=== PATIENT | male | born 1950 | race Caucasian/White ===

== ENCOUNTER 2016-07-22 10:24 | Day surgery (SDC) | payer MEDICARE, OTHER ==
[2016-07-20 16:09] VITALS: BMI 19.2
[~2016-07-22 10:24] MED LIST: DEXAMETHASONE SOD PHOSPHATE 10 MG/ML 1 ML VIAL IV ONE; DEXAMETHASONE SOD PHOSPHATE 4 MG/ML 1 ML VIAL IV ONE; FAMOTIDINE 20 MG/2 ML VIAL IV ONE; LACTATED RINGERS 1,000 ML IV SCH; ONDANSETRON 4 MG/2 ML VIAL IVP ONE; ceFAZolin 1,000 MG in DEXTROSE/WATER 1 50ML.BAG IV ONE
[2016-07-22] MEDS: OXYMETAZOLINE 0.05% NASL SPRAY 15 ML NASAL ONE ×5 (11:00→11:25)
[2016-07-22] MEDS ORDERED: LIDOCAINE 1% 20 ML VIAL (10MG/ML) FOR IV START INTRADERMA ONE (11:06)
[2016-07-22] MEDS ORDERED: LIDOCAINE 1% INJ 10MG/ML (20 ML MDV) ONE (12:10)
[2016-07-22] MEDS ORDERED: PROPOFOL 10 MG/ML 20 ML VIAL IV ONE (12:10)
[2016-07-22] MEDS ORDERED: MIDAZOLAM 2 MG/2 ML VIAL ONE (12:10)
[2016-07-22] MEDS ORDERED: DEXAMETHASONE SOD PHOS (MDV) 100 MG/10 ML VIAL ONE (12:10)
[2016-07-22] MEDS ORDERED: SUCCINYLCHOLINE CHLORIDE 100 MG/5 ML SYR IV ONE (12:10)
[2016-07-22] MEDS ORDERED: fentaNYL (PF) 50 MCG/ML 2 ML AMP ONE (12:10)
[2016-07-22] MEDS ORDERED: PHENYLEPHRINE-0.9% NACL SYG 1 MG/10 ML SYRINGE ONE (12:10)
[2016-07-22] MEDS ORDERED: LIDOCAINE 1%-EPI 1:100,000 20 ML VIAL SUBMUCOSAL ONE ×2 (12:28)
[2016-07-22] MEDS ORDERED: BACITRACIN 500 UNIT/GM OINT 28.4 GM TUBE TOPICAL ONE (12:34)
--- NOTE | 2016-07-22 13:42 | P.OP ---
Date of Procedure: 07/22/16 Preoperative Diagnosis: Deviated nasal septum Inferior turbinate hypertrophy Chronic sinusitis Postoperative Diagnosis: Deviated nasal septum Inferior turbinate hypertrophy Chronic sinusitis Procedure(s) Performed: Septoplasty Outfractured and submucous resection inferior turbinates Bilateral endoscopic sinus surgery including bilateral maxillary antrostomy with removal of tissue from the maxillary sinuses bilateral anterior posterior ethmoidectomy, balloon sinus plasty of the bilateral frontal and sphenoid sinuses with exploration Anesthesia: JASON Surgeon: Jus Sandoval Estimated Blood Loss (ml): 50 Pathology: other (Nasal septal bone and cartilage sinus contents) Condition: stable Disposition: PACU Indications for Procedure: This 66-year-old with difficulties with chronic and recurrent sinusitis requiring antibiotics multiple times a year. Computed tomography scan showed evidence of pansinusitis. He also has chronic nasal airway obstruction. Operative Findings: Nasal septum deviated to the left, inferior turbinate hypertrophy, polypoid changes middle turbinates bilaterally chronic and the maxillary ethmoid sphenoid and frontal sinuses. Description of Procedure: The patient was brought in the operative suite and placed in a supine position. The patient underwent induction of general anesthesia with oral endotracheal intubation without difficulty. Patient was prepped and draped in usual aseptic fashion. Orbits were in the operating for monitoring throughout the case computed tomography scan was on the infusion throughout the case for review and monitoring. 1% lidocaine with 1 100,000 epinephrine was infused submucosally both sides nasal septum as well as lateral nasal wall and anterior tips the middle turbinates . While this was taking vasoconstrictive effect the inferior turbinates were infractured with Bolt elevator partial submucous resection inferior turbinates performed with microdebrider 2 mm blade removing a portion of the submucosal soft tissue and inferior turbinate bone and then outfractured with Bolt elevator. A left hemitransfixion incision was made with the mucoperichondrial fossa flap on the left elevated. Bony cartilaginous junction was disarticulated and the mucoperiosteal flap on the right was elevated. Bony nasal septal deformities were removed Quincy forceps and an inferior cartilaginous strip was removed leaving a full 1.5 cm caudal strut. Checking intranasally this corrected the nasoseptal deformities and the hemitransfixion incision was closed running 4-0 chromic suture. Full 0 endoscopic examination was performed bilaterally. Being on the left the middle turbinate was medialized with the Ward elevator. There was a sky bullosa cell which was opened performing sky bullectomy. Maxillary ostium located with a ballpoint probe and an infundibulotomy was performed followed by uncinectomy. The maxillary sinus was explored with 30 endoscope and polyps removed from the sinus with giraffe forceps. Anterior and posterior ethmoidectomy were performed from anterior to posterior to the level of the skull base and the roof the anterior anterior ethmoids air cells cleaned with up -biting Blakesley forceps. Nasal frontal duct was then explored. Balloon sinus plasty was performed of the frontal and sphenoid sinuses with the [employer] light guided system exploring the sinuses with 0 and 30 endoscopes. Attention was then turned to the right where the procedures were followed as they had been on the left including the sky bullectomy maxillary antrostomy anterior posterior ethmoidectomy and balloon sinus plasty of the frontal and sphenoid sinus with exploration. Once this was completed standard nasal pore nasal dressing was placed the middle meatus under direct visualization. Bilateral Hammond airway splints coated bacitracin ointment were placed in nasal cavities. Patient was was allowed to emerge from general anesthesia having tolerated procedure well and was extubated in the operating suite and transferred postoperative recovery area in satisfactory condition.
[2016-07-22] MEDS: HYDROmorphone 1 MG/ML 1 ML SYRINGE IVP PRN ×2 (14:05→14:15)
[2016-07-22 14:16] VITALS: TEMP 97.3
[2016-07-22] MEDS ORDERED: LACTATED RINGERS 1,000 ML IV ONE (14:19)
[2016-07-22 14:22] VITALS: RESP 16
[2016-07-22 15:06] VITALS: BP 109/79; PULSE 80
== END 2016-07-22 16:08 | disposition home or self-care (01) ==
LOC: OR 10:24
PROVIDERS: ATTEND Otolaryngology
DX: J34.2 Deviated nasal septum (principal); J34.3 Hypertrophy of nasal turbinates; J32.4 Chronic pansinusitis; J33.8 Other polyp of sinus; J44.9 Chronic obstructive pulmonary disease, unspecified; J45.909 Unspecified asthma, uncomplicated; I10 Essential (primary) hypertension; J37.0 Chronic laryngitis; I25.10 Atherosclerotic heart disease of native coronary artery without angina pectoris; K21.9 Gastro-esophageal reflux disease without esophagitis; H91.90 Unspecified hearing loss, unspecified ear; E78.00 Pure hypercholesterolemia, unspecified; Z87.891 Personal history of nicotine dependence; Z95.5 Presence of coronary angioplasty implant and graft; Z79.82 Long term (current) use of aspirin; Z79.899 Other long term (current) drug therapy; Z79.2 Long term (current) use of antibiotics; Z79.51 Long term (current) use of inhaled steroids; Z79.52 Long term (current) use of systemic steroids
CPT/HCPCS: 88305; 88300; 30520; 30140; 31255; 31267; C1726; J2250; J1100 ×2; J2405; J2001; J3010; J1170; J0690; J2370; J0330; J2704

== ENCOUNTER 2017-01-02 13:44 | Emergency (ER) | payer MEDICARE, OTHER ==
[2017-01-02] MEDS ORDERED: RX INFO: IV CONTRAST WAS GIVEN 1 EACH MISC MISCELLANE PRN (14:03)
[2017-01-02] MEDS ORDERED: MORPHINE SULFATE 2 MG/ML SYRINGE IVP STA (14:03)
[2017-01-02] MEDS ORDERED: ONDANSETRON 4 MG/2 ML VIAL IVP STA (14:03)
[2017-01-02] MEDS ORDERED: SODIUM CHLORIDE 0.9% 500 ML IV STA (14:03)
[2017-01-02 14:49] LABS: Appearance,Urine Clear (Clear); Bilirubin,Urine Negative (Negative); Glucose,Urine (UA) Negative (Negative); Ketones,Urine 1+ (Negative); Leukocyte Esterase,Urine Small (Negative); Nitrite,Urine Negative (Negative); PH, Urine 6.5 (5.0-8.0); Particle Count 599; Protein,Urine Negative (Negative); RBC,Urine 1 /hpf (0-5); Squamous Epithelial Cell,Urine <1 /hpf (0-4); UA Billing (MACRO vs. MICRO) MICRO; Urobilinogen,Urine <2.0 mg/dL (<2.0); WBC,Urine 2 /hpf (0-5)
[2017-01-02 14:49] LABS: Basophils % (A) 0 %; CHCM 33.6; Eosinophils # (A) 0.5 k/uL (0-0.7); Eosinophils % (A) 9 %; HCT 44.5 % (39.0-53.0); HDW 2.77; HGB 14.7 gm/dL (13.0-17.5); Luc # (Auto) 0.15; Luc % (Auto) 3; Lymphocytes # (A) 1.1 k/uL (1.0-4.8); Lymphocytes % (A) 21 %; MCH 28.6 pg (25.0-35.0); MCV 86.7 fL (80.0-100.0); Mean Platelet Volume 6.6; Monocytes # (A) 0.3 k/uL (0-1.0); Monocytes % (A) 6 %; Neutrophils # (A) 3.2 k/uL (1.3-7.7); Neutrophils % (A) 61 %; RBC 5.13 m/uL (4.30-5.90); RDW 13.3 % (11.5-15.5); WBC 5.3 k/uL (3.8-10.6); WBC (Perox) 5.51
[2017-01-02 15:01] LABS: ALT 34 U/L (21-72); AST 20 U/L (17-59); Alkaline Phosphatase 72 U/L (38-126); Amylase 44 U/L (30-110); Anion Gap 13 mmol/L; Blood Urea Nitrogen 11 mg/dL (9-20); Calcium 9.5 mg/dL (8.4-10.2); Carbon Dioxide 21 mmol/L (22-30); Chloride 107 mmol/L (98-107); Glucose 90 mg/dL (74-99); Non-African American GFR(MDRD) >60 (>60 ml/min/1.73 sqM); Potassium 4.1 mmol/L (3.5-5.1); Sodium 141 mmol/L (137-145); Total Bilirubin 0.6 mg/dL (0.2-1.3); Total Protein 6.5 g/dL (6.3-8.2)
--- NOTE | 2017-01-02 15:12 | ED ---
General Adult HPI - General Chief complaint: Abdominal Pain Stated complaint: Abd Pain Time Seen by Provider: 01/02/17 13:56 Source: patient, RN notes reviewed Mode of arrival: ambulatory Limitations: no limitations - History of Present Illness Initial comments: 66-year-old male with past medical history of COPD, CAD, and inguinal hernia presents with the one-day history of abdominal pain. Pain is mild at this time. Patient points to right lower quadrant. Patient describes the pain is sharp in nature, crampy coming and going. Denies vomiting but states his parents and nausea. Patient had a bowel movement today which was watery diarrhea. He had one episode of diarrhea prior to this. No blood in diarrhea. There is no fever or chills. No chest pain or shortness of breath. - Related Data Home Medications Medication Instructions Recorded Confirmed Albuterol Nebulized [Ventolin 2.5 mg INHALATION Q6H PRN 03/18/16 01/02/17 Nebulized] Aspirin 81 mg PO DAILY 03/18/16 01/02/17 Budesonide/Formoterol Fumarate 2 puff INHALATION RT-BID 03/18/16 01/02/17 [Symbicort 160-4.5 Mcg Inhaler] Omeprazole [PriLOSEC] 20 mg PO AC-BRKFST 03/18/16 01/02/17 Allergies Allergy/AdvReac Type Severity Reaction Status Date / Time No Known Allergies Allergy Verified 01/02/17 16:06 Review of Systems ROS Statement: Those systems with pertinent positive or pertinent negative responses have been documented in the HPI. ROS Other: All systems not noted in ROS Statement are negative. Respiratory: Denies: cough, dyspnea Cardiovascular: Denies: chest pain, palpitations Past Medical History Past Medical History: Asthma, Coronary Artery Disease (CAD), Chest Pain / Angina , COPD, GERD/Reflux, Myocardial Infarction (ID), Osteoarthritis (OA) Additional Past Medical History / Comment(s): recent stress test & echo Last Myocardial Infarction Date:: 2005 History of Any Multi-Drug Resistant Organisms: None Reported Past Surgical History: Heart Catheterization With Stent, Hernia Repair Additional Past Surgical History / Comment(s): Heart catheterization 2-3 weeks ago. BRONCHOSCOPY Past Anesthesia/Blood Transfusion Reactions: No Reported Reaction Date of Last Stent Placement:: 2005 Past Psychological History: No Psychological Hx Reported Smoking Status: Former smoker Past Alcohol Use History: None Reported Past Drug Use History: None Reported - Past Family History Mother Family Medical History: No Reported History General Exam Limitations: no limitations General appearance: alert, in no apparent distress Head exam: Present: atraumatic, normocephalic Eye exam: Present: normal appearance, PERRL ENT exam: Present: normal exam, normal oropharynx, mucous membranes moist Neck exam: Present: normal inspection. Absent: tenderness Respiratory exam: Present: normal lung sounds bilaterally. Absent: respiratory distress Cardiovascular Exam: Present: regular rate. Absent: normal rhythm GI/Abdominal exam: Present: soft, tenderness (Right lower quadrant tenderness to palpation). Absent: distended, guarding, rebound, rigid Extremities exam: Present: normal inspection, normal capillary refill. Absent: pedal edema Back exam: Present: normal inspection Neurological exam: Present: alert, oriented X3. Absent: motor sensory deficit Psychiatric exam: Present: normal affect, normal mood Skin exam: Present: warm, dry. Absent: cyanosis, diaphoretic Course Vital Signs 01/02/17 01/02/17 01/02/17 13:55 14:55 15:49 Temperature 98.8 F 98.2 F 98.5 F Pulse Rate 74 67 63 Respiratory 20 20 21 Rate Blood Pressure 121/73 130/79 147/73 O2 Sat by Pulse 99 97 99 Oximetry EKG Findings - EKG Comments: EKG Findings:: EKG shows normal sinus rhythm, ventricular 64,. Over 150, QRS duration 84, QTC 412, there is no ST segment elevation or depression, there is occasional PVC Medical Decision Making - Medical Decision Making 66-year-old male presenting with right lower quadrant abdominal pain. Pain was sharp and crampy in nature. Patient also reports 2 episodes of watery diarrhea. Some nausea without vomiting. Patient did report a transient episode of chest pain while in the emergency department. EKG was obtained which was nonischemic. Cardiac enzymes also obtained which were negative. Patient states the pain lasted just a minute. After the administration of Zantac nausea medicine. On reevaluation the patient denied any chest pain. There is no radiation of the pain. Laboratories include CBC, CMP, urinalysis. There was no Abnormality seen on the studies. CT was obtained given the right lower quadrant abdominal pain. This was negative for obstruction, negative for appendicitis. No diverticulitis. No acute findings to explain the patient's pain. On reevaluation the patient is feeling better. No episodes nausea vomiting while in the emergency department. Patient's vital signs remained stable. He will be discharged with outpatient follow-up. Diagnosis: Abdominal pain NOS - Lab Data Result diagrams: 01/02/17 14:26 01/02/17 14:26 Lab Results 01/02/17 01/02/17 01/02/17 Range/Units 14:26 14:26 14:26 WBC 5.3 (3.8-10.6) k/uL RBC 5.13 (4.30-5.90) m/uL Hgb 14.7 (13.0-17.5) gm/dL Hct 44.5 (39.0-53.0) % MCV 86.7 (80.0-100.0) fL MCH 28.6 (25.0-35.0) pg MCHC 33.0 (31.0-37.0) g/dL RDW 13.3 (11.5-15.5) % Plt Count 253 (150-450) k/uL Neutrophils % 61 % Lymphocytes % 21 % Monocytes % 6 % Eosinophils % 9 % Basophils % 0 % Neutrophils # 3.2 (1.3-7.7) k/uL Lymphocytes # 1.1 (1.0-4.8) k/uL Monocytes # 0.3 (0-1.0) k/uL Eosinophils # 0.5 (0-0.7) k/uL Basophils # 0.0 (0-0.2) k/uL Sodium 141 (137-145) mmol/L Potassium 4.1 (3.5-5.1) mmol/L Chloride 107 (98-107) mmol/L Carbon Dioxide 21 L (22-30) mmol/L Anion Gap 13 mmol/L BUN 11 (9-20) mg/dL Creatinine 0.90 (0.66-1.25) mg/dL Est GFR (MDRD) Af Amer >60 (>60 ml/min/1.73 sqM) Est GFR (MDRD) Non-Af >60 (>60 ml/min/1.73 sqM) Glucose 90 (74-99) mg/dL Plasma Lactic Acid Jacob 0.9 (0.7-2.0) mmol/L Calcium 9.5 (8.4-10.2) mg/dL Total Bilirubin 0.6 (0.2-1.3) mg/dL AST 20 (17-59) U/L ALT 34 (21-72) U/L Alkaline Phosphatase 72 (38-126) U/L Troponin I (0.000-0.034) ng/mL Total Protein 6.5 (6.3-8.2) g/dL Albumin 3.9 (3.5-5.0) g/dL Amylase 44 (30-110) U/L Lipase 169 (23-300) U/L Urine Color Urine Appearance (Clear) Urine pH (5.0-8.0) Ur Specific Savanna (1.001-1.035) Urine Protein (Negative) Urine Glucose (UA) (Negative) Urine Ketones (Negative) Urine Blood (Negative) Urine Nitrite (Negative) Urine Bilirubin (Negative) Urine Urobilinogen (<2.0) mg/dL Ur Leukocyte Esterase (Negative) Urine RBC (0-5) /hpf Urine WBC (0-5) /hpf Ur Squamous Epith Cells (0-4) /hpf 01/02/17 01/02/17 Range/Units 14:26 14:33 WBC (3.8-10.6) k/uL RBC (4.30-5.90) m/uL Hgb (13.0-17.5) gm/dL Hct (39.0-53.0) % MCV (80.0-100.0) fL MCH (25.0-35.0) pg MCHC (31.0-37.0) g/dL RDW (11.5-15.5) % Plt Count (150-450) k/uL Neutrophils % % Lymphocytes % % Monocytes % % Eosinophils % % Basophils % % Neutrophils # (1.3-7.7) k/uL Lymphocytes # (1.0-4.8) k/uL Monocytes # (0-1.0) k/uL Eosinophils # (0-0.7) k/uL Basophils # (0-0.2) k/uL Sodium (137-145) mmol/L Potassium (3.5-5.1) mmol/L Chloride (98-107) mmol/L Carbon Dioxide (22-30) mmol/L Anion Gap mmol/L BUN (9-20) mg/dL Creatinine (0.66-1.25) mg/dL Est GFR (MDRD) Af Amer (>60 ml/min/1.73 sqM) Est GFR (MDRD) Non-Af (>60 ml/min/1.73 sqM) Glucose (74-99) mg/dL Plasma Lactic Acid Jacob (0.7-2.0) mmol/L Calcium (8.4-10.2) mg/dL Total Bilirubin (0.2-1.3) mg/dL AST (17-59) U/L ALT (21-72) U/L Alkaline Phosphatase (38-126) U/L Troponin I <0.012 (0.000-0.034) ng/mL Total Protein (6.3-8.2) g/dL Albumin (3.5-5.0) g/dL Amylase (30-110) U/L Lipase (23-300) U/L Urine Color Yellow Urine Appearance Clear (Clear) Urine pH 6.5 (5.0-8.0) Ur Specific Sav[place] 1.010 (1.001-1.035) Urine Protein Negative (Negative) Urine Glucose (UA) Negative (Negative) Urine Ketones 1+ H (Negative) Urine Blood Negative (Negative) Urine Nitrite Negative (Negative) Urine Bilirubin Negative (Negative) Urine Urobilinogen <2.0 (<2.0) mg/dL Ur Leukocyte Esterase Small H (Negative) Urine RBC 1 (0-5) /hpf Urine WBC 2 (0-5) /hpf Ur Squamous Epith Cells <1 (0-4) /hpf Disposition Clinical Impression: Abdominal pain Disposition: HOME SELF-CARE Condition: Good Instructions: Abdominal Pain (ED) Referrals: Prashanth Mckeon MD [Primary Care Provider] - 1-2 days Time of Disposition: 16:21
[2017-01-02 15:50] VITALS: BP 147/73; PULSE 63; RESP 21; TEMP 98.5
--- NOTE | 2017-01-02 16:03 | CT ---
EXAMINATION TYPE: CT abdomen pelvis w con DATE OF EXAM: 01/02/2017 COMPARISON: NONE HISTORY: RUQ pain. CT DLP: 330.9 mGycm, Automated Exposure Control for Dose Reduction was Utilized. CONTRAST: CT scan of the abdomen and pelvis is performed without oral but with IV Contrast, patient injected wi th 100 mL of Omnipaque 300. FINDINGS: LUNG BASES: No significant abnormality is appreciated. LIVER/GB: Visualized liver is heterogeneous hypodense suggesting fatty infiltration. This can be conf irmed with follow-up ultrasound if desired. No CT dense intraluminal gallstones or surrounding inflam matory changes seen. PANCREAS: No significant abnormality is seen. SPLEEN: No significant abnormality is seen. ADRENALS: Slight nodular thickening to left adrenal gland is present. KIDNEYS: No significant abnormality is seen. BOWEL: Evaluation bowel is suboptimal secondary to lack of enteric contrast. There is no suspicious s mall or large bowel dilatation seen. Scattered colonic diverticula are seen without convincing CT marino dence for acute diverticulitis. PROSTATE/SEMINAL VESICLES: Heterogeneous enlarged prostate gland bulging on bladder base consistent w ith BPH is present. Central zone calcifications are noted. LYMPH NODES: No greater than 1cm abdominal or pelvic lymph nodes are appreciated. OSSEOUS STRUCTURES: No significant abnormality is seen. OTHER: There is moderate calcified plaque of the abdominal aorta as well as pelvic branch vessels. IMPRESSION: Colonic diverticulosis without convincing CT evidence for acute diverticulitis. No signi ficant acute finding is clearly seen to account for patient's clinical symptoms.
== END 2017-01-02 16:30 | disposition home or self-care (01) ==
LOC: EC 13:44
DX: R10.31 Right lower quadrant pain (principal); R19.7 Diarrhea, unspecified; R11.0 Nausea; J45.909 Unspecified asthma, uncomplicated; M19.90 Unspecified osteoarthritis, unspecified site; J44.9 Chronic obstructive pulmonary disease, unspecified; K21.9 Gastro-esophageal reflux disease without esophagitis; Z98.890 Other specified postprocedural states; Z87.891 Personal history of nicotine dependence; Z79.51 Long term (current) use of inhaled steroids; Z79.82 Long term (current) use of aspirin; Z79.899 Other long term (current) drug therapy
CPT/HCPCS: 36415; 93005; 80053; 82150; 83605; 83690; 84484; 85025; 81001; 74177; 99284; 96374; 96375; 96361; J2405; J2270; Q9967

== ENCOUNTER → 2019-01-09 | Outpatient (CLI) | payer MEDICARE ==
[2019-01-09 12:38] VITALS: BP 120/66; PULSE 68; RESP 16
--- NOTE | 2019-01-10 13:53 | P.PAINCN ---
History of Present Illness - Reason for Consult Consult date: 01/09/19 - History of Present Illness This is a 68-year-old patient who has been referred for chronic pain in the neck, radiating to right shoulder, right arm, forearm and into all 5 fingers. Pain began a few months ago, with no inciting event. He endorses numbness and tingling in his right hand, all 5 fingers. He denies overt weakness. Of note, he follows with an orthopedic surgeon )Dr. Merino in [place]) for right shoulder pain, and has been told he has a rotator cuff tear. Patient has been taking medications including [id number] Tylenol with some relief. He reports that he has occasional spasms in bilateral hands and feet. Patient denies new- onset weakness, bowel/bladder incontinence, or any other signs or symptoms of cauda equina syndrome. Patient notes that there are no aggravating or relieving factors for his pain. Patient HAS NOT had surgery. Patient HAS NOT had injections previously. Patient HAS NOT had physical therapy recently. In addition to above, 13-point review of systems is also negative for chest pain, shortness of breath, changes in vision, changes in hearing, new onset weakness, abdominal pain, diarrhea, extreme fatigue, malaise, fever, skin changes, homicidal or suicidal ideation, or bowel or bladder incontinence. Imaging: MRI cervical spine done at [facility] on 12/20/2018 shows multilevel degenerative changes, most pronounced at C6-C7 where there is a posterior disc osteophyte complex resulting in mild central canal stenosis. There is bilateral uncovertebral joint hypertrophy. The constellation of findings result in severe left and moderate to severe right neuroforaminal narrowing. Past Medical History Past Medical History: Asthma, Coronary Artery Disease (CAD), Chest Pain / Angina, COPD, GERD/Reflux, Myocardial Infarction (NE), Osteoarthritis (OA) Additional Past Medical History / Comment(s): recent stress test & echo Last Myocardial Infarction Date:: 2005 History of Any Multi-Drug Resistant Organisms: None Reported Past Surgical History: Heart Catheterization With Stent, Hernia Repair Additional Past Surgical History / Comment(s): BRONCHOSCOPY Past Anesthesia/Blood Transfusion Reactions: No Reported Reaction Date of Last Stent Placement:: 2005 Smoking Status: Former smoker - Past Family History Mother Family Medical History: No Reported History Medications and Allergies Home Medications Medication Instructions Recorded Confirmed Type Albuterol Nebulized [Ventolin 2.5 mg INHALATION Q6H PRN 03/18/16 01/09/19 History Nebulized] Aspirin 81 mg PO DAILY 03/18/16 01/09/19 History Budesonide/Formoterol Fumarate 2 puff INHALATION RT-BID 03/18/16 01/09/19 History [Symbicort 160-4.5 Mcg Inhaler] Omeprazole [PriLOSEC] 20 mg PO AC-BRKFST 03/18/16 01/09/19 History Allergies Allergy/AdvReac Type Severity Reaction Status Date / Time No Known Allergies Allergy Verified 01/09/19 12:39 Physical Exam Vitals: Blood pressure 120/66 Heart rate 68 bpm Respirations 16 per minute Saturations 98% on room air Physical exam: Vital Signs: Reviewed in EMR GENERAL: Well appearing, in no acute distress PSYCH: Mood and affect is appropriate. Awake, alert, and oriented SKIN: Skin color, texture, turgor normal, no rashes or lesions HEENT: Normocephalic, atraumatic. EOM intact CV: No pedal edema RESP: Respirations are unlabored, no audible wheezing GI: Abdomen non-distended MUSCULOSKELETAL: Bilateral upper extremity strength is normal and symmetric. No atrophy or tone abnormalities are noted. Neck: Tenderness to palpation over the cervical paraspinous muscles bilaterally. Spurling negative, Axial Loading Test negative, Babcock's sign negative. No pain with neck flexion, extension, or lateral flexion. No obvious deformity or signs of trauma. Normal cervical lordotic curve and normal cervical spine range of motion Right shoulder: No tenderness to palpation along anterior and posterior joint line. Positive Neer sign and crossed adduction sign. Gait: Gait is normal NEUR: Bilateral upper extremity coordination and muscle stretch reflexes are physiologic and symmetric. No loss of sensation is noted. Cranial nerves are grossly intact. Assessment and Plan Plan: Assessment: 1. Cervical radiculitis 2. Cervical degenerative disc disease 3. Right shoulder painlikely due to rotator cuff injury Plan: 1. Procedures: Will schedule right paramedian C7-T1 epidural steroid injection under fluoroscopy 2. Investigations: None, MRI C-spine reviewed 3. Medications: No Changes at this time 4. Disposition: For above-mentioned procedure PQRS Measure Charge Sheet PQRS Narrative: Smoking Status Former smoker Blood Pressure 120/66 Pain Intensity [Lower Neck] 10 Scale Used Numeric (1 - 10) Hx Alcohol Use (MH) No Home Medications: Ambulatory Orders Albuterol Nebulized [Ventolin Nebulized] 2.5 mg INHALATION Q6H PRN 03/18/16 Aspirin 81 mg PO DAILY 03/18/16 Budesonide/Formoterol Fumarate [Symbicort 160-4.5 Mcg Inhaler] 2 puff INHALATION RT-BID 03/18/16 Omeprazole [PriLOSEC] 20 mg PO AC-BRKFST 03/18/16
== END | disposition home or self-care (01) ==
LOC: PNWHC3 12:11
PROVIDERS: ATTEND Anesthesiology
DX: G89.29 Other chronic pain (principal); M50.10 Cervical disc disorder with radiculopathy, unspecified cervical region; M25.511 Pain in right shoulder; I25.2 Old myocardial infarction; M19.90 Unspecified osteoarthritis, unspecified site; I25.10 Atherosclerotic heart disease of native coronary artery without angina pectoris; J45.909 Unspecified asthma, uncomplicated; Z87.891 Personal history of nicotine dependence; Z79.82 Long term (current) use of aspirin; Z79.51 Long term (current) use of inhaled steroids; Z79.899 Other long term (current) drug therapy
CPT/HCPCS: 99201

== ENCOUNTER 2019-01-23 09:16 | Day surgery (SDC) | payer MEDICARE ==
[2019-01-17 16:14] VITALS: BMI 19.9
[~2019-01-23 09:16] MED LIST changes: -DEXAMETHASONE SOD PHOSPHATE 10 MG/ML 1 ML VIAL IV ONE; -DEXAMETHASONE SOD PHOSPHATE 4 MG/ML 1 ML VIAL IV ONE; -FAMOTIDINE 20 MG/2 ML VIAL IV ONE; -ONDANSETRON 4 MG/2 ML VIAL IVP ONE; -ceFAZolin 1,000 MG in DEXTROSE/WATER 1 50ML.BAG IV ONE
[2019-01-23 09:47] VITALS: TEMP 97.9
[2019-01-23] MEDS ORDERED: LIDOCAINE 1% 20 ML VIAL (10MG/ML) FOR IV START INTRADERMA ONE (09:50)
[2019-01-23 09:51] LABS: Glucose,Whole Blood 81 mg/dL (75-99)
--- NOTE | 2019-01-23 10:15 | P.PCN ---
Date of Procedure: 01/23/19 Procedure(s) Performed: . PROCEDURE 1. Cervical epidural steroid injection under fluoroscopic guidance, C7-T1 (fluoroscopy images available in the radiology department ) 2. Cervical epidurogram. PREOPERATIVE DIAGNOSIS: 1- Cervical Degenerative Disc Diseases 2- Cervical radiculopathy., POSTOPERATIVE DIAGNOSIS: : 1- Cervical Degenerative Disc Diseases , 2- Cervical radiculopathy. ANESTHESIA: Local anesthesia with lidocaine 1 % , and moderate sedation, with Versed 2 mg and Fentanyl 50 mcg. EBL 0 PROCEDURE INDICATION: The patient with neck pain and radiculitis unresponsive to conservative treatment consents for procedure. PROCEDURE DESCRIPTION / TECHNIQUE: The patient was seen and identified in the preoperative area. Risks, benefits, complications, including but not limited to infections ,bleeding , allergic reactions to the medications ,and not complete pain releife, and alternatives were discussed with the patient, the patient agreed to proceed with the procedure and signed the consent. Patient was taken to the OR and time out was completed. The patient was placed in the prone position on the procedure table. A pillow was placed under the patients chest to increase the cervical interlaminar space. The cervical area was prepped and draped in the usual sterile fashion. Vital signs were closely monitored during the procedure. Conscious sedation was used during the procedure to decrease patients anxiety. Using anterior-posterior fluoroscopy, the C7-T1 interlaminar space was identified and the skin over this site was marked and then infiltrated with 1% lidocaine subcutaneously. Subsequently, a 20-gauge 3-1/2-inch Tuohy epidural needle was inserted and advanced toward the epidural space by means of the ``hanging-drop technique and guided by AP and lateral fluoroscopy. The correct needle position in the epidural space was verified with the injection of 2 mL of the water soluble contrast dye Isovue-200 and observing an excellent epidurogram with the epidural spread of the dye, after negative aspiration for blood and CSF and in the absence of paresthesias. Again after negative aspiration, mixture containing 20 mg Dexamethasone and 2 ml of preservative- free normal saline injected and a washout of epidurogram was seen. Needle was withdrawn intact, skin was cleansed, and bandages were applied. Complications= none. Disposition= patient was placed in supine position and transferred to the recovery room area in stable condition and there was no evidence of upper or lower extremity motor or sensory deficit after the procedure patient was discharged from recovery room after discharge criteria met and home discharge instructions was given by the staff and patient will follow with the pain clinic in 2-4 weeks
[2019-01-23] MEDS ORDERED: IV FLUID CONTINUATION 1,000 ML IV ONE (10:16)
[2019-01-23 10:19] VITALS: RESP 16
--- NOTE | 2019-01-23 10:24 | FL ---
Fluoroscopy INDICATION: Pain FINDINGS: Fluoroscopy time: 2 seconds. Images obtained: 1. IMPRESSIONS: 1. Documentation of fluoroscopy.
[2019-01-23 10:33] VITALS: BP 134/67; PULSE 78
== END 2019-01-23 10:54 | disposition home or self-care (01) ==
LOC: ORPAIN 09:16
PROVIDERS: ATTEND Specialist
DX: M50.10 Cervical disc disorder with radiculopathy, unspecified cervical region (principal)
CPT/HCPCS: 62321; J2250; J1100; J3010; Q9966

== ENCOUNTER → 2019-02-16 | Outpatient (CLI) | payer MEDICARE ==
[2019-02-16 11:54] VITALS: BP 125/72; PULSE 72; RESP 16
--- NOTE | 2019-02-16 12:35 | P.PN ---
Subjective Progress Note Date: 02/16/19 This is a 68-year-old patient who has been referred for chronic pain in the neck, radiating to right shoulder, right arm, forearm and into all 5 fingers. He is here for follow up after his cervical epidural steroid injection, which helped minimally with his pain. His pain score went from an 8/10 60s for 1 day. Because his pain was not better reduced, insurance would not authorize a second cervical injection . In terms of his pain, to briefly review, his pain began a few months ago, with no inciting event. He endorses numbness and tingling in his right hand, all 5 fingers. He denies overt weakness. Of note, he follows with an orthopedic surgeon )Dr. Merino in [place]) for right shoulder pain, and has been told he has a rotator cuff tear. He reports that he has occasional spasms in bilateral hands and feet. Patient denies new-onset weakness, bowel/bladder incontinence, or any other signs or symptoms of cauda equina syndrome. Today he is interested in other interventional options for his pain. Objective - Vital Signs Vital signs: Vital Signs Temp Pulse 72 02/16/19 11:41 Resp 16 02/16/19 11:41 BP 125/72 02/16/19 11:41 Pulse Ox - Exam Vital Signs: Reviewed in EMR GENERAL: Well appearing, in no acute distress, PSYCH: Mood and affect is appropriate. Awake, alert, and oriented SKIN: Skin color, texture, turgor normal, no rashes or lesions HEENT: Normocephalic, atraumatic. EOM intact CV: No pedal edema RESP: Respirations are unlabored, no audible wheezing GI: Abdomen non-distended MUSCULOSKELETAL: Bilateral upper and lower extremity strength is normal and symmetric. No atrophy or tone abnormalities are noted. Neck: He does have some pain to palpation to cervical paraspinals. However in the vast majority of his pain is in the musculature in his right neck near the cervical paraspinals, trapezius, supraspinatus muscle. Extremities: Peripheral joint ROM is full and pain free without obvious instability or laxity in all four extremities. No edema or skin discolorations noted. Gait: Gait is anantalgic NEUR: Bilateral upper and lower extremity coordination and muscle stretch reflexes are physiologic and symmetric. No loss of sensation is noted. Cranial nerves are grossly intact. Assessment and Plan Assessment: Assessment: 1. Myofascial pain 2. Cervical radicular pain 3. Cervical spondylosis Plan: 1. Explanation: I strained him that his pain could be coming from multiple sources. He did not have good response to cervical epidural. His pain may be from the musculature or from the cervical facets. 2. Opioid agreement: None 3. Counseling: The patient was instructed C-reactive 4. Procedures: We will pursue trigger point injections given the myofascial nature of this pain. If this is not help to pursue a cervical medial branch RFA workup. This should be done on the lower cervical levels. 5. Consultations: He was given a prescription for physical therapy for potential myofascial pain and cervical facet arthropathy. 6. Investigations: None 7. Medications: Patient was given a prescription for lidocaine patch. 8. Disposition: For trigger point injections. ,
== END ==
LOC: PNWHC3 11:18
PROVIDERS: ATTEND Student in an Organized Health Care Education/Training Program
DX: M47.22 Other spondylosis with radiculopathy, cervical region (principal); M79.18 Myalgia, other site
CPT/HCPCS: 99211

== ENCOUNTER 2019-03-01 08:57 | Day surgery (SDC) | payer MEDICARE ==
[2019-02-27 11:04] VITALS: BMI 19.2
[2019-03-01] MEDS ORDERED: LIDOCAINE 1% 20 ML VIAL (10MG/ML) FOR IV START INTRADERMA ONE (10:11)
[2019-03-01 10:20] VITALS: TEMP 98
--- NOTE | 2019-03-01 10:56 | P.PCN ---
Date of Procedure: 03/01/19 Procedure(s) Performed: Procedure= trigger point injection on the right side cervical paraspinal muscles, right trapezius, Right supraspinatus. (Total of 6 trigger points injected ) Preop diagnosis=1-myofascial pain syndrome and cervical area. 2-cervical radiculopathy. 3-cervical spondylosis with facet arthropathy. Postoperative diagnoses= same as preoperative diagnoses. Anesthesia=none . Condition= stable. Complications=none. Indication and description of the procedure= this is 68 years old male with history of severe neck pain who failed conservative treatment and he is here to have trigger point injection procedure risks ,and benefits and alternatives discussed with the patient he agreed with the preceding patient taken to the procedure room and placed in the sitting position, each of the trigger point (total of 6 trigger point was identified in the right side trapezius supraspinatus and right cervical paraspinous muscles ) it was marked in the preop holding area, each point injected with mixture of ropivacaine 0.5% and Depo-Medrol ,3 mL injected at each trigger point, after negative aspiration using 25-gauge needle, injection done after negative aspiration under was no paresthesia ,injection done after we prepped the area with a chlorhexidine 3 , total of 18 ML of the mixture of ropivacaine 0.5% was mixed with 40 mg of Depo- Medrol. Patient tolerated the procedure well without any competitions.
[2019-03-01] MEDS ORDERED: IV FLUID CONTINUATION 1,000 ML IV ONE (10:57)
[2019-03-01 11:12] VITALS: BP 147/76; PULSE 65; RESP 16
== END 2019-03-01 11:16 | disposition home or self-care (01) ==
LOC: ORPAIN 08:57
PROVIDERS: ATTEND Specialist
DX: M79.18 Myalgia, other site (principal); M47.22 Other spondylosis with radiculopathy, cervical region
CPT/HCPCS: 20553; J1030

== ENCOUNTER 2020-08-01 07:13 | Inpatient (IN) | payer MEDICARE ==
[2020-08-01] MEDS ORDERED: HYDROmorphone 1 MG/ML 1 ML SYRINGE IVP STA (07:26)
[2020-08-01] MEDS ORDERED: SODIUM CHLORIDE 0.9% 1,000 ML IV STA (07:26)
--- NOTE | 2020-08-01 07:47 | ED ---
Abdominal Pain HPI - General Chief Complaint: Abdominal Pain Stated Complaint: Abd Pain Time Seen by Provider: 08/01/20 07:13 Source: patient, EMS, old records reviewed Mode of arrival: EMS Limitations: no limitations - History of Present Illness Initial Comments: This is a 70-year-old male who was transferred from [facility] where he was diagnosed with acute cholecystitis this morning.) By EMS. He states they have any abdominal pain for the past 2 days he states that in spite of pain medication he still has pain is close to 10/10 severity. He had a workup there which included lab work and a CAT scan lab work showed a elevated white blood cell count CAT scan showed evidence a distended gallbladder with possible stones in the gallbladder neck and prominence of the gallbladder wall. Patient was transferred here for further evaluation and treatment. No current nausea vomiting diarrhea no other complaints at this time MD Complaint: abdominal pain - Related Data Home Medications Medication Instructions Recorded Confirmed Albuterol Nebulized [Ventolin 2.5 mg INHALATION Q6H PRN 03/18/16 03/17/19 Nebulized] Budesonide/Formoterol Fumarate 2 puff INHALATION RT-BID 03/18/16 03/17/19 [Symbicort 160-4.5 Mcg Inhaler] Omeprazole [PriLOSEC] 20 mg PO AC-[id number] 03/18/16 03/17/19 RX: Aspirin 81 mg PO DAILY 03/18/16 03/17/19 Lidocaine 5% Patch [Lidoderm] 1 patch TOPICAL BID 02/16/19 03/17/19 Allergies Allergy/AdvReac Type Severity Reaction Status Date / Time No Known Allergies Allergy Verified 08/01/20 07:29 Review of Systems ROS Statement: Those systems with pertinent positive or pertinent negative responses have been documented in the HPI. ROS Other: All systems not noted in ROS Statement are negative. Past Medical History Past Medical History: Asthma, Coronary Artery Disease (CAD), Chest Pain / Angina, COPD, GERD/Reflux, Hyperlipidemia, Hypertension, Myocardial Infarction ([place]), Osteoarthritis (OA) Additional Past Medical History / Comment(s): recent stress test & echo, increasing neck pain with headaches Last Myocardial Infarction Date:: 2005 History of Any Multi-Drug Resistant Organisms: None Reported Past Surgical History: Heart Catheterization With Stent, Hernia Repair Additional Past Surgical History / Comment(s): BRONCHOSCOPY, PAIN CLINIC PROCEDURES Past Anesthesia/Blood Transfusion Reactions: No Reported Reaction Date of Last Stent Placement:: 2005 Past Psychological History: Anxiety Smoking Status: Former smoker Past Alcohol Use History: None Reported Past Drug Use History: None Reported - Past Family History Mother Family Medical History: No Reported History General Exam - General Exam Comments Initial Comments: This a well-developed asthenic appearing male who is awake alert oriented 3 Limitations: no limitations General appearance: alert, anxious, in distress Head exam: Present: atraumatic, normocephalic, normal inspection Eye exam: Present: normal appearance, PERRL, EOMI. Absent: scleral icterus, conjunctival injection, periorbital swelling ENT exam: Present: normal exam, mucous membranes moist Neck exam: Present: normal inspection. Absent: tenderness, meningismus, lymphadenopathy Respiratory exam: Present: normal lung sounds bilaterally. Absent: respiratory distress, wheezes, rales, rhonchi, stridor Cardiovascular Exam: Present: regular rate, normal rhythm, normal heart sounds. Absent: systolic murmur, diastolic murmur, rubs, gallop, clicks GI/Abdominal exam: Present: soft, tenderness (Right upper quadrant tenderness palpation with some evidence of guarding), guarding, normal bowel sounds. Absent: distended, rebound, rigid Extremities exam: Present: normal inspection, full ROM, normal capillary refill. Absent: tenderness, pedal edema, joint swelling, calf tenderness Back exam: Present: normal inspection Neurological exam: Present: alert, oriented X3, CN II-XII intact Psychiatric exam: Present: normal affect, normal mood Skin exam: Present: warm, dry, intact, normal color. Absent: rash Course Vital Signs 08/01/20 07:15 Temperature 98.2 F Pulse Rate 68 Respiratory 18 Rate Blood Pressure 159/113 O2 Sat by Pulse 96 Oximetry - Reevaluation(s) Reevaluation #1: 08/01/20 07:47 I did review the imaging in the materials presented EKG appears be normal sinus with no acute findings. I did discuss case with Dr. Harp patient will be admitted for further evaluation and treatment. Patient has already received IV antibiotics prior to transfer. Disposition Clinical Impression: Abdominal pain, Acute cholecystitis Disposition: ADMITTED IP TO THIS [facility] Condition: Stable Referrals: Prashanth Mckeon MD [Primary Care Provider] - 1-2 days
[2020-08-01] MEDS ORDERED: HYDROmorphone 1 MG/ML 1 ML SYRINGE IVP PRN (07:48)
[2020-08-01] MEDS ORDERED: NALOXONE 0.4 MG/ML 1 ML VIAL IV PRN (07:48)
[2020-08-01] MEDS ORDERED: ONDANSETRON 4 MG/2 ML VIAL IVP PRN (07:48)
[2020-08-01] MEDS ORDERED: TAMSULOSIN 0.4 MG CAP.ER.24H PO STA (08:12)
[2020-08-01] MEDS ORDERED: INDOCYANINE GREEN 25 MG VIAL IV STA (08:12)
--- NOTE | 2020-08-01 08:15 | P.GSHP ---
History of Present Illness H&P Date: 08/01/20 CHIEF COMPLAINT: Cholecystitis HISTORY OF PRESENT ILLNESS: The patient is a 70-year-old male transferred from outside facility, [facility] after having 2 days of generalized with right upper quadrant abdominal pain. Outside films are consistent with cholecystitis, as a result he was transferred to [facility]. He reports his abdominal pain is generalized mostly focused on the right upper quadrant. He denies any previous abdominal surgeries. He does have pre-existing history of heart disease. No alleviating factors. He presented with elevated white count. Patient is admitted for acute cholecystitis. PAST MEDICAL HISTORY: Please see list and reviewed PAST SURGICAL HISTORY: Please see list and reviewed MEDICATIONS: Please see list and reviewed ALLERGIES: Please see list and reviewed SOCIAL HISTORY: Please see list and reviewed FAMILY HISTORY: Please see list and reviewed REVIEW OF ORGAN SYSTEMS: CONSTITUTIONAL: No reports of fevers or chills. HEENT: Denies any troubles with the vision or hearing. ENDOCRINE: No reports of hypothyroidism. No diabetes. RESPIRATORY: Has moderate chronic obstructive pulmonary disease CARDIOVASCULAR: History of ischemic cardiomyopathy including previous cardiac catheterization with stent placement. History of echo performed. History of congestive heart failure GASTROINTESTINAL: Presents with cholecystitis. No current blood in stools. Has gastroesophageal reflux disease. MUSCULOSKELETAL: Has occasional joint pain including back pain. NEURO: No seizure disorders or headaches. No recent stroke. PSYCH: No suicidal ideation. Has anxiety disorder. HEMATOLOGIC: No personal or family history of DVTs or pulmonary emboli. SKIN: No rash. No skin cancer. 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 HEENT: No scleral icterus. Extraocular movements grossly intact. Moist buccal mucosa. NECK: Supple without lymphadenopathy. CHEST: Unlabored respirations. Equal bilateral excursions. CARDIOVASCULAR: Regular rate regular rhythm rhythm. Distal 2+ pulses. ABDOMEN: Soft, nondistended. Tender along the epigastrium and right upper quadrant. MUSCULOSKELETAL: No clubbing, cyanosis, or edema. NEURO : No focal or lateralizing signs. Cranial nerves II-12 within normal limits. PSYCH: Alert and oriented to person, place and time. SKIN: Well perfused. Good skin turgor. LABS: Reviewed. White count 12,000. LFTs within normal limits. PT/INR within normal limits. EKG: Demonstrates abnormalities including previous infarct ASSESSMENT: 1. Acute cholecystitis 2. Pre-existing ischemic cardiomyopathy with congestive heart failure PLAN: 1. Robotic cholecystectomy described possible open. Benefits and risks were described. 2. Heparin for DVT prophylaxis 5000 units. 3. Antibiotic prophylaxis. 4. Patient is elevated risk for complications due to pre-existing ischemic cardiomyopathy including severity of chronic obstructive pulmonary disease. Past Medical History Past Medical History: Asthma, Coronary Artery Disease (CAD), Chest Pain / Angina, COPD, GERD/Reflux, Hyperlipidemia, Hypertension, Myocardial Infarction ([place]), Osteoarthritis (OA) Additional Past Medical History / Comment(s): recent stress test & echo, increasing neck pain with headaches Last Myocardial Infarction Date:: 2005 History of Any Multi-Drug Resistant Organisms: None Reported Past Surgical History: Heart Catheterization With Stent, Hernia Repair Additional Past Surgical History / Comment(s): BRONCHOSCOPY, PAIN CLINIC PROCEDURES Past Anesthesia/Blood Transfusion Reactions: No Reported Reaction Date of Last Stent Placement:: 2005 Past Psychological History: Anxiety Smoking Status: Former smoker Past Alcohol Use History: None Reported Past Drug Use History: None Reported - Past Family History Mother Family Medical History: No Reported History Medications and Allergies Home Medications Medication Instructions Recorded Confirmed Type Budesonide/Formoterol Fumarate 2 puff INHALATION RT-BID 03/18/16 08/01/20 History [Symbicort 160-4.5 Mcg Inhaler] Atorvastatin [Lipitor] 40 mg PO HS 08/01/20 08/01/20 History Diazepam [Valium] 5 mg PO HS PRN 08/01/20 08/01/20 History Esomeprazole Magnesium [NexIUM] 40 mg PO DAILY 08/01/20 08/01/20 History Famotidine 20 mg PO BID 08/01/20 08/01/20 History Isosorbide Mononitrate ER [Imdur] 30 mg PO DAILY 08/01/20 08/01/20 History Naproxen [Naprosyn] 500 mg PO BID PRN 08/01/20 08/01/20 History Nitroglycerin Sl Tabs [Nitrostat] 0.4 mg SUBLINGUAL Q5M PRN 08/01/20 08/01/20 History Ranolazine [Ranolazine ER] 500 mg PO BID 08/01/20 08/01/20 History Tamsulosin [Flomax] 0.4 mg PO DAILY 08/01/20 08/01/20 History Allergies Allergy/AdvReac Type Severity Reaction Status Date / Time No Known Allergies Allergy Verified 08/01/20 10:04 Surgical - Exam Vital Signs Temp Pulse Resp BP Pulse Ox 98.2 F 68 18 159/113 96 08/01/20 07:15 08/01/20 07:15 08/01/20 07:15 08/01/20 07:15 08/01/20 07:15 Results - Labs 08/01/20 09:40 08/01/20 09:40 Assessment and Plan (1) Acute cholecystitis Current Visit: Yes Status: Acute Code(s): K81.0 - ACUTE CHOLECYSTITIS SNOMED Code(s): 07715085
[2020-08-01] MEDS ORDERED: HEPARIN SODIUM,PORCINE 5,000 UNIT/ML 1 ML VIAL SQ SCH (09:00)
[2020-08-01 09:59] LABS: Basophils # (A) 0.1 k/uL (0-0.2); Basophils % (A) 0 %; Eosinophils # (A) 0.3 k/uL (0-0.7); Eosinophils % (A) 2 %; HCT 45.7 % (39.0-53.0); Lymphocytes % (A) 8 %; MCH 29.2 pg (25.0-35.0); MCHC 32.9 g/dL (31.0-37.0); MCV 88.8 fL (80.0-100.0); Mean Platelet Volume 6.6; Monocytes # (A) 0.7 k/uL (0-1.0); Monocytes % (A) 5 %; Neutrophils % (A) 83 %; Platelet Count 237 k/uL (150-450); RBC 5.14 m/uL (4.30-5.90); RDW 13.2 % (11.5-15.5); WBC 12.1 k/uL (3.8-10.6)
[2020-08-01 10:09] LABS: ALT 22 U/L (4-49); AST 35 U/L (17-59); African American GFR (CKD) >90 (>60 ml/min/1.73 sqM); Albumin 3.9 g/dL (3.5-5.0); Alkaline Phosphatase 65 U/L (38-126); Anion Gap 8 mmol/L; Blood Urea Nitrogen 9 mg/dL (9-20); Carbon Dioxide 24 mmol/L (22-30); Chloride 104 mmol/L (98-107); Glucose 114 mg/dL (74-99); Non-African American GFR(CKD) >90 (>60 ml/min/1.73 sqM); Potassium 4.6 mmol/L (3.5-5.1); Prothrombin Time 10.3 sec (9.0-12.0); Sodium 136 mmol/L (137-145); Total Bilirubin 0.7 mg/dL (0.2-1.3); Total Protein 6.7 g/dL (6.3-8.2)
[2020-08-01] MEDS ORDERED: DEXAMETHASONE SOD PHOSPHATE 4 MG/ML 1 ML VIAL IV ONE (10:27)
[2020-08-01] MEDS ORDERED: IV FLUID CONTINUATION 900 ML IV ONE (10:29)
[2020-08-01] MEDS ORDERED: MIDAZOLAM 2 MG/2 ML VIAL ONE (10:31)
[2020-08-01] MEDS ORDERED: LIDOCAINE 1% INJ 10MG/ML (20 ML MDV) ONE (10:31)
[2020-08-01] MEDS ORDERED: PROPOFOL 10 MG/ML 20 ML VIAL IV ONE (10:31)
[2020-08-01] MEDS ORDERED: fentaNYL (PF) 50 MCG/ML 2 ML AMP ONE (10:31)
[2020-08-01] MEDS ORDERED: SUCCINYLCHOLINE CHLORIDE 100 MG/5 ML SYR IV ONE (10:31)
[2020-08-01] MEDS ORDERED: GLYCOPYRROLATE 0.2 MG/ML 2 ML VIAL ONE (10:31)
[2020-08-01] MEDS ORDERED: ROCURONIUM 10 MG/ML (5 ML VIAL) IV ONE (10:31)
[2020-08-01] MEDS ORDERED: NEOSTIGMINE 1 MG/ML 10 ML VIAL ONE (10:31)
[2020-08-01] MEDS ORDERED: BUPIVACAINE-EPI 0.5%-1:200,000 10 ML VIAL SQ ONE (10:59)
[2020-08-01] MEDS ORDERED: LACTATED RINGERS 1,000 ML IV ONE (12:05)
[2020-08-01 12:45] VITALS: RESP 16
[2020-08-01] MEDS ORDERED: NITROGLYCERIN SL TABS 0.4 MG TAB SUBLINGUAL PRN (13:04)
[2020-08-01] MEDS ORDERED: diazePAM 5 MG TAB PO PRN (13:04)
[2020-08-01] MEDS ORDERED: METOCLOPRAMIDE 5 MG/ML 2 ML VIAL IVP PRN (13:06)
--- NOTE | 2020-08-01 13:18 | P.OP ---
Date of Procedure: 08/01/20 Description of Procedure: SURGEON: ONESIMO CASSIDY MD PREOPERATIVE DIAGNOSES: 1. Acute cholecystitis 2. Chronic obstructive pulmonary disease 3. Ischemic cardiomyopathy 4. Hypertensive heart disease with congestive heart failure 5. Generalized anxiety disorder 6. 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 Leukocytosis 8. Gastroesophageal reflux disease 9. Coronary artery disease with prior stent placement 10. History of myocardial infarction POSTOPERATIVE DIAGNOSES: 1. Acute cholecystitis with hydrops due to cystic duct obstruction from gallstones 2. Chronic obstructive pulmonary disease 3. Ischemic cardiomyopathy 4. Hypertensive heart disease with congestive heart failure 5. Generalized anxiety disorder 6. 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 Leukocytosis 8. Gastroesophageal reflux disease 9. Coronary artery disease with prior stent placement 10. History of myocardial infarction OPERATION: Robotic-assisted da Henrietta Xi laparoscopic cholecystectomy, multiport with FIREFLY ESTIMATED BLOOD LOSS: 10 mL. SPECIMENS REMOVED: Gallbladder. COMPLICATIONS: None. OPERATIVE FINDINGS: 1. Moderately distended gallbladder with thickened gallbladder wall and edema 2. Clear bile consistent with hydrops cholecystitis 3. Features of right inguinal hernia surgery via pre-peritoneal technique INDICATIONS: The patient is a 70-year-old male presented emergently as a transfer from [facility] with acute cholecystitis. Robotic assisted laparoscopic approach was described. Benefits and risks of the procedure including but not limited to bleeding, infection, injury to the biliary tree was described. Informed consent was obtained. DESCRIPTION OF PROCEDURE: Patient was brought to the operating room, placed in supine position. After general induction, the abdomen had been prepped and draped in standard sterile fashion. The robotic da Henrietta XI system was primed. After a timeout protocol was performed, the patient had been prepped and draped in standard sterile fashion. The patient was injected with indocyanine green. A 5 mm 0 degrees laparoscopic trocar entry was performed along the left upper quadrant. The abdomen insufflated to 15 mmHg pressure which was tolerated well. Diagnostic laparoscopy demonstrated no injury to bowel viscera or mesentery. The liver surface was unremarkable. Next, two 8 mm robotic ports were placed along the right upper abdomen. The camera 8-mm port was maintained along the epigastrium. Another 8 mm port was placed along the left upper abdominal wall after exchanging the 5 mm port. Please note that the ports were placed at least 10 to 15 cm away from the target anatomy of the gallbladder. The robot was docked along the left lateral abdomen. The patient was repositioned in reverse Trendelenburg position at 21 with right-sided of 7. Using a grasper for arm 3, a grasper for arm 4, including hook cautery for arm 1, the robotic system was docked and primed as described. Instruments were interchanged by the front office medical assistant including hook cautery, Bovie cautery and clip appliers. I had sat at the console. Initial attention was brought to the infundibulum and cystic structures. However, due to moderate edema and distention of the gallbladder, dome down te chnique was performed. Carefully, the gallbladder dissected from the hepatic fossa using hook cautery including vessel sealer at the infundibulum. FIREFLY was used to identify the cystic artery and cystic structures. A critical view of safety was obtained. Large PLASTIC clips were used throughout the entire case. Using a clip air conditioning unit assembler, 2 clips were placed at the junction of the infundibulum and cystic duct. The cystic duct was divided between clips. Next, the cystic artery was similarly clipped and cauterized. Electro-Bovie cautery was used to remove the gallbladder from the hepatic fossa. Hemostasis was checked and found to be adequate. No contamination occurred during the case. The robot was undocked. I re-scrubbed into the case. Initially 10 mm bag was used. The gallbladder was too large. Using a 15 mm Endo Catch bag via the left upper quadrant incision, the specimen was removed from the abdominal cavity. The left upper quadrant incision and fascia were oversewn using 0 Vicryl and Stoney Song. All pneumoperitoneum instruments were evacuated from the abdominal cavity. The incisions were reapproximated using 4-0 Monocryl in an interrupted subcuticular fashion. Fascial defects were less than 8 mm in size. Please note along the trocar sites, local anesthetic was placed as a field block prior to insertion of all instruments. Liquid glue was applied to the skin. At the end of the procedure needle, sponge, and instrument count had been verified correct by the surgical endoscopist. The patient was transferred to postanesthesia care unit in stable condition. Intraoperative films were shared with the patient's family.
[2020-08-01] MEDS ORDERED: ACETAMINOPHEN IV (For NPO) 1,000 MG in EMPTY BAG 1 BAG IVPB ONE (13:30)
[2020-08-01 13:43] VITALS: TEMP 98.2
[2020-08-01 16:24] VITALS: BP 126/72; PULSE 74
--- NOTE | 2020-08-01 16:51 | P.CONS ---
History of Present Illness - Reason for Consult Consult date: 08/01/20 Medical management - Chief Complaint Abdominal pain - History of Present Illness 70-year-old male patient with history of CAD, hypertension, hyperlipidemia and asthma, who was transferred from [facility] where he was diagnosed with acute cholecystitis this morning.) By EMS. He states they have any abdominal pain for the past 2 days he states that in spite of pain medication he still has pain is close to 10/10 severity. He had a workup there which included lab work and a CAT scan lab work showed a elevated white blood cell count CAT scan showed evidence a distended gallbladder with possible stones in the gallbladder neck and prominence of the gallbladder wall. Patient was transferred here for further evaluation and treatment. Patient was seen by surgery and underwent robotic-assisted laparoscopic cholecystectomy; medical service is consulted postoperatively for medical manag ement Review of Systems REVIEW OF SYSTEMS: CONSTITUTIONAL: No fever, no malaise, no fatigue. HEENT: No recent visual problems or hearing problems. Denied any sore throat. CARDIOVASCULAR: No chest pain, orthopnea, PND, no palpitations, no syncope. PULMONARY: No shortness of breath, no cough, no hemoptysis. GASTROINTESTINAL: No diarrhea, no nausea, no vomiting, no abdominal pain. NEUROLOGICAL: No headaches, no weakness, no numbness. HEMATOLOGICAL: Denies any bleeding or petechiae. GENITOURINARY: Denies any burning micturition, frequency, or urgency. MUSCULOSKELETAL/RHEUMATOLOGICAL: Denies any joint pain, swelling, or any muscle pain. ENDOCRINE: Denies any polyuria or polydipsia. The rest of the 14-point review of systems is negative. Past Medical History Past Medical History: Asthma, Coronary Artery Disease (CAD), Chest Pain / Angina, COPD, GERD/Reflux, Hyperlipidemia, Hypertension, Myocardial Infarction (MD), Osteoarthritis (OA) Additional Past Medical History / Comment(s): recent stress test & echo, increasing neck pain with headaches Last Myocardial Infarction Date:: 2005 History of Any Multi-Drug Resistant Organisms: None Reported Past Surgical History: Heart Catheterization With Stent, Hernia Repair Additional Past Surgical History / Comment(s): BRONCHOSCOPY, PAIN CLINIC PROCEDURES Past Anesthesia/Blood Transfusion Reactions: No Reported Reaction Date of Last Stent Placement:: 2005 Past Psychological History: Anxiety Smoking Status: Former smoker Past Alcohol Use History: None Reported Past Drug Use History: None Reported - Past Family History Mother Family Medical History: No Reported History Medications and Allergies Home Medications Medication Instructions Recorded Confirmed Type Budesonide/Formoterol Fumarate 2 puff INHALATION RT-BID 03/18/16 08/01/20 History [Symbicort 160-4.5 Mcg Inhaler] Acetaminophen Tab [Tylenol Tab] 1,000 mg PO Q6HR PRN #30 tablet 08/01/20 Rx Atorvastatin [Lipitor] 40 mg PO HS 08/01/20 08/01/20 History Diazepam [Valium] 5 mg PO HS PRN 08/01/20 08/01/20 History Esomeprazole Magnesium [NexIUM] 40 mg PO DAILY 08/01/20 08/01/20 History Famotidine 20 mg PO BID 08/01/20 08/01/20 History Isosorbide Mononitrate ER [Imdur] 30 mg PO DAILY 08/01/20 08/01/20 History Naproxen [Naprosyn] 500 mg PO BID PRN 08/01/20 08/01/20 History Nitroglycerin Sl Tabs [Nitrostat] 0.4 mg SUBLINGUAL Q5M PRN 08/01/20 08/01/20 History Ranolazine [Ranolazine ER] 500 mg PO BID 08/01/20 08/01/20 History Simethicone [Gas-X] 125 mg PO AC-TID PRN #20 capsule 08/01/20 Rx Tamsulosin [Flomax] 0.4 mg PO DAILY 08/01/20 08/01/20 History Allergies Allergy/AdvReac Type Severity Reaction Status Date / Time No Known Allergies Allergy Verified 08/01/20 10:04 Physical Exam Vitals: Vital Signs Temp Pulse Pulse Pulse Resp BP BP 08/01/20 16:20 74 16 08/01/20 15:15 79 16 08/01/20 14:45 68 16 08/01/20 14:15 77 16 08/01/20 14:00 76 16 08/01/20 13:45 70 16 08/01/20 13:30 98.2 F 80 16 08/01/20 13:13 77 16 08/01/20 12:58 68 16 08/01/20 12:43 78 16 08/01/20 12:28 97.9 F 81 10 L 08/01/20 10:03 98.4 F 66 16 152/75 08/01/20 08:59 98.4 F 68 17 163/78 08/01/20 08:42 98 F 80 18 158/86 08/01/20 07:15 98.2 F 68 18 159/113 BP Pulse Ox 08/01/20 16:20 126/72 94 L 08/01/20 15:15 106/70 95 08/01/20 14:45 130/77 96 08/01/20 14:15 129/59 96 08/01/20 14:00 93/56 96 08/01/20 13:45 106/56 96 08/01/20 13:30 133/76 96 08/01/20 13:13 140/76 99 08/01/20 12:58 148/68 98 08/01/20 12:43 139/67 96 08/01/20 12:28 141/69 99 08/01/20 10:03 92 L 08/01/20 08:59 95 08/01/20 08:42 100 08/01/20 07:15 96 Intake and Output 08/01/20 08/01/20 08/01/20 06:59 14:59 22:59 Intake Total 2030 Output Total 10 Balance 2020 Intake: IV 1150 Intake, IV Titration 400 Amount ACETAMINOPHEN IV (For NPO 400 ) 1,000 mg In Empty Bag 1 bag @ 400 mls/hr IVPB ONCE ONE Rx#:[id number] Oral 480 Output: Estimated Blood Loss 10 Other: Weight 61.235 kg - Constitutional General appearance: Present: average body habitus, cooperative, no acute distress - EENT Eyes: Present: anicteric sclerae, EOMI, PERRLA, normal appearance ENT: Present: hearing grossly normal, normal oropharynx Ears: bilateral: normal - Neck Neck: Present: normal ROM. Absent: lymphadenopathy, rigidity, thyromegaly Carotids: negative: bruit present Thyroid: bilateral: normal size, negative: enlarged, nodule - Respiratory Respiratory: bilateral: CTA, negative: rales, rhonchi, wheezing - Cardiovascular Rhythm: regular Heart sounds: normal: S1, S2 Abnormal Heart Sounds: Absent: systolic murmur, diastolic murmur - Gastrointestinal General gastrointestinal: Present: normal bowel sounds, soft. Absent: distended, organomegaly, tenderness - Genitourinary Genitourinary Comment(s): deferred - Integumentary Integumentary: Present: normal turgor. Absent: jaundiced, rash, ulcer - Neurologic Neurologic: Present: CNII-XII intact. Absent: focal deficits - Musculoskeletal Musculoskeletal: Present: gait normal, strength equal bilaterally - Psychiatric Psychiatric: Present: A&O x's 3, appropriate affect, intact judgment & insight Results CBC & Chem 7: 08/01/20 09:40 08/01/20 09:40 Labs: Abnormal Lab Results - Last 24 Hours (Table) 08/01/20 08/01/20 Range/Units 09:40 09:40 WBC 12.1 H (3.8-10.6) k/uL Neutrophils # 10.0 H (1.3-7.7) k/uL Sodium 136 L (137-145) mmol/L Glucose 114 H (74-99) mg/dL Assessment and Plan Assessment: 1. Acute cholecystitis; status post robotic-assisted laparoscopic cholecystectomy - Your management 2. Hypertension; Imdur 30 mg daily 3. CAD/CHF; status post stent placement; continue with Imdur, Ranexa 500 mg twice a day 4. COPD/asthma; not in exacerbation; continue with home inhaler therapy with Symbicort 2 puffs twice a day; DuoNeb nebulizer treatments 4 times a day when necessary 5. Hyperlipidemia; Lipitor 40 mg by mouth daily at bedtime DVT prophylaxis; per surgery discretion CODE STATUS; full code
[2020-08-01] MEDS ORDERED: PIPERACILLIN-TAZOBACTAM 3.375 GM in SODIUM CHLORIDE 0.9% 100 ML IVPB STA (17:50)
[2020-08-01] MEDS ORDERED: KETOROLAC 15 MG/ML 1 ML VIAL IVP SCH (18:00)
[2020-08-01] MEDS ORDERED: ACETAMINOPHEN TAB 500 MG TAB PO SCH (18:00)
[2020-08-01] MEDS ORDERED: SYMBICORT 160-4.5 MCG INHALER INHALATION SCH (20:00)
[2020-08-01] MEDS ORDERED: RANOLAZINE 500 MG TAB.ER.12H PO SCH (21:00)
[2020-08-01] MEDS ORDERED: FAMOTIDINE 20 MG TAB PO SCH (21:00)
[2020-08-01] MEDS ORDERED: ATORVASTATIN 40 MG TAB PO SCH (21:00)
[2020-08-02] MEDS ORDERED: PIPERACILLIN-TAZOBACTAM 3.375 GM in SODIUM CHLORIDE 0.9% 100 ML IVPB SCH ×2
[2020-08-02] MEDS ORDERED: PANTOPRAZOLE 40 MG TABLET PO SCH (07:30)
[2020-08-02] MEDS ORDERED: TAMSULOSIN 0.4 MG CAP.ER.24H PO SCH (09:00)
[2020-08-02] MEDS ORDERED: ISOSORBIDE MONONITRATE ER 30 MG TAB.ER.24H PO SCH (09:00)
--- NOTE | 2020-08-02 15:18 | P.DS ---
Providers Date of admission: 08/01/20 08:03 Expected date of discharge: 08/01/20 Attending physician: Shasha Dutton Consults: 08/01/20 13:08 Consult Physician Routine Consulting Provider: Lavelle Bloom Consult Reason/Comments: Medical management Do you want consulting provider notified?: Yes Primary care physician: Prashanth Mckeon - Discharge Diagnosis(es) (1) Acute cholecystitis Status: Acute Hospital Course: POSTOPERATIVE DIAGNOSES: 1. Acute cholecystitis with hydrops due to cystic duct obstruction from gallstones 2. Chronic obstructive pulmonary disease 3. Ischemic cardiomyopathy 4. Hypertensive heart disease with congestive heart failure 5. Generalized anxiety disorder 6. 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 Leukocytosis 8. Gastroesophageal reflux disease 9. Coronary artery disease with prior stent placement 10. History of myocardial infarction COURSE: The patient is a 70-year-old male transferred from outside facility, [facility] after having 2 days of generalized with right upper quadrant abdominal pain. Outside films are consistent with cholecystitis, as a result he was transferred to [facility]. He reports his abdominal pain is generalized mostly focused on the right upper quadrant. He denies any previous abdominal surgeries. He does have pre-existing history of heart disease. No alleviating factors. He presented with elevated white count. Patient was admitted for acute cholecystitis. He underwent robotic cholecystectomy without sequela. Postoperatively, he was voiding, pain was well-controlled, he was tolerating diet. Discharge instructions were reviewed. Patient was stable for discharge. Procedures: OPERATION: Robotic-assisted da Henrietta Xi laparoscopic cholecystectomy, multiport with FIREFLY ESTIMATED BLOOD LOSS: 10 mL. SPECIMENS REMOVED: Gallbladder. COMPLICATIONS: None. OPERATIVE FINDINGS: 1. Moderately distended gallbladder with thickened gallbladder wall and edema 2. Clear bile consistent with hydrops cholecystitis 3. Features of right inguinal hernia surgery via pre-peritoneal technique Patient Condition at Discharge: Stable Plan - Discharge Summary Discharge Rx Participant: No New Discharge Prescriptions: New Simethicone [Gas-X] 125 mg PO AC-TID PRN #20 capsule PRN Reason: Abdominal Distention Acetaminophen Tab [Tylenol Tab] 1,000 mg PO Q6HR PRN #30 tablet PRN Reason: Pain Continue Budesonide/Formoterol Fumarate [Symbicort 160-4.5 Mcg Inhaler] 2 puff INHALATION RT-BID Tamsulosin [Flomax] 0.4 mg PO DAILY Ranolazine [Ranolazine ER] 500 mg PO BID Nitroglycerin Sl Tabs [Nitrostat] 0.4 mg SUBLINGUAL Q5M PRN PRN Reason: Chest Pain Naproxen [Naprosyn] 500 mg PO BID PRN PRN Reason: Pain Isosorbide Mononitrate ER [Imdur] 30 mg PO DAILY Famotidine 20 mg PO BID Esomeprazole Magnesium [NexIUM] 40 mg PO DAILY Diazepam [Valium] 5 mg PO HS PRN PRN Reason: Insomnia Atorvastatin [Lipitor] 40 mg PO HS Discharge Medication List Budesonide/Formoterol Fumarate [Symbicort 160-4.5 Mcg Inhaler] 2 puff INHALATION RT-BID 03/18/16 [History] Acetaminophen Tab [Tylenol Tab] 1,000 mg PO Q6HR PRN #30 tablet 08/01/20 [Rx] Atorvastatin [Lipitor] 40 mg PO HS 08/01/20 [History] Diazepam [Valium] 5 mg PO HS PRN 08/01/20 [History] Esomeprazole Magnesium [NexIUM] 40 mg PO DAILY 08/01/20 [History] Famotidine 20 mg PO BID 08/01/20 [History] Isosorbide Mononitrate ER [Imdur] 30 mg PO DAILY 08/01/20 [History] Naproxen [Naprosyn] 500 mg PO BID PRN 08/01/20 [History] Nitroglycerin Sl Tabs [Nitrostat] 0.4 mg SUBLINGUAL Q5M PRN 08/01/20 [History] Ranolazine [Ranolazine ER] 500 mg PO BID 08/01/20 [History] Simethicone [Gas-X] 125 mg PO AC-TID PRN #20 capsule 08/01/20 [Rx] Tamsulosin [Flomax] 0.4 mg PO DAILY 08/01/20 [History] Follow up Appointment(s)/Referral(s): Shasha Dutton MD [STAFF PHYSICIAN] - 08/06/20 Prashanth Mckeon MD [Primary Care Provider] - 1-2 days Patient Instructions/Handouts: Laparoscopic Cholecystectomy (DC) Activity/Diet/Wound Care/Special Instructions: Recommend low-fat diet for the next 2 days. No lifting over 10 pounds in 2 weeks until August 15. September shower. No bath tub soaks for two weeks until August 15. Diet as tolerated. Use Tylenol and ibuprofen or Aleve scheduled for the next 24-48 hours for best pain relief. Use ice along incisions for today to prevent swelling. Discharge Disposition: HOME SELF-CARE
== END 2020-08-01 19:20 | disposition home or self-care (01) | DRG 418 ==
LOC: EC 07:13 → 6NMEDSUR 08:03 → OBSVTOIN 13:06 → UNDODISOB 19:20
PROVIDERS: ADMIT Surgery Plastic and Reconstructive Surgery; ATTEND Surgery Plastic and Reconstructive Surgery
PROC: BF50200 Other Imaging of Bile Ducts using Fluorescing Agent, Indocyanine Green Dye, Intraoperative (ICD-10-PCS; 2020-08-01)
PROC: 8E0W4CZ Robotic Assisted Procedure of Trunk Region, Percutaneous Endoscopic Approach (ICD-10-PCS; 2020-08-01)
PROC: 0FT44ZZ Resection of Gallbladder, Percutaneous Endoscopic Approach (ICD-10-PCS; principal; 2020-08-01 10:30)
DX: K80.01 Calculus of gallbladder with acute cholecystitis with obstruction (principal); K82.1 Hydrops of gallbladder; J44.9 Chronic obstructive pulmonary disease, unspecified; I25.5 Ischemic cardiomyopathy; I11.0 Hypertensive heart disease with heart failure; I50.9 Heart failure, unspecified; F41.1 Generalized anxiety disorder; K21.9 Gastro-esophageal reflux disease without esophagitis; I25.10 Atherosclerotic heart disease of native coronary artery without angina pectoris; I25.2 Old myocardial infarction; N13.9 Obstructive and reflux uropathy, unspecified; N42.9 Disorder of prostate, unspecified; Z79.82 Long term (current) use of aspirin; E78.5 Hyperlipidemia, unspecified; D72.829 Elevated white blood cell count, unspecified; Z79.51 Long term (current) use of inhaled steroids; Z95.5 Presence of coronary angioplasty implant and graft; Z87.891 Personal history of nicotine dependence; Z20.822 Contact with and (suspected) exposure to COVID-19
CPT/HCPCS: 80053; 85025; 85610; 87635; 88304; 96361; 96374; 96375; 99285

== ENCOUNTER → 2022-09-17 | Outpatient (CLI) | payer MEDICARE ==
--- NOTE | 2022-09-17 22:39 | MR ---
MRI CERVICAL SPINE: CLINICAL HISTORY: No prior, neck pain with headaches with BUE weakness and pain for 3 months , no nela scarlett. spondylosis with radiculopathy per order TECHNIQUE: Multiplanar, multisequence imaging of the cervical spine is performed without IV contrast. COMPARISON: Outside cervical spine x-ray September 02, 2022 FINDINGS: Sagittal images of the cervical spine show the craniocervical junction to appear within nor mal limits. The cervical and upper thoracic spinal cord is normal in course, caliber, and signal. Sl ight grade 1 retrolisthesis C3 on C4 and C4 on C5 is redemonstrated. The vertebral body heights are normal. Persistent mild to moderate disc space narrowing C3-C4, C4-C5, and C6-C7 levels The bone mar row signal intensity is within normal limits. At least moderate mucosal thickening in the bilateral m axillary and sphenoid sinuses is felt present. Axial images show C2-C3 level to appear within normal limits. Axial images at C3-C4 level shows spondylosis with broad-based posterior disc protrusion mildly effac ing the anterior thecal sac and causing moderate left greater than right bilateral neural foraminal n arrowing. Axial images at C4-C5 level show spondylolisthesis with central disc protrusion mildly facing anterio r thecal sac and causing moderate to advanced bilateral neural foraminal narrowing. Axial images at C5-C6 level show left-sided uncovertebral facet degenerative change causing moderate left sided neural foraminal narrowing. Axial images at C6-C7 level shows mild to moderate broad-based posterior disc protrusion and left-sloan ed uncovertebral facet degenerative change causing moderate to advanced left-sided neural foraminal n arrowing with mild to moderate right-sided neural foraminal narrowing. Axial images at C7-T1 level appear within normal limits. IMPRESSION: Multilevel spondylolisthesis and degenerative change in the cervical spine as detailed ab ove.
== END | disposition home or self-care (01) ==
LOC: RADMRIMAIN 15:47
PROVIDERS: ATTEND Nurse Practitioner Family
DX: M47.22 Other spondylosis with radiculopathy, cervical region (principal); M43.12 Spondylolisthesis, cervical region
CPT/HCPCS: 72141

== ENCOUNTER 2022-10-08 00:21 | Observation (INO) | payer MEDICARE ==
[2022-10-08] MEDS ORDERED: SODIUM CHLORIDE 0.9% 500 ML 500 ML IV STA (00:41)
[2022-10-08] MEDS ORDERED: HEPARIN SODIUM 1,000 UN/ML (10ML VL) IV PRN (00:41)
[2022-10-08] MEDS ORDERED: NITROGLYCERIN SL TABS 0.4 MG TAB SUBLINGUAL STA (00:41)
[2022-10-08] MEDS ORDERED: HEPARIN SOD,PORK IN 0.45% NACL 25,000 UNIT in 0.45% NACL 1 250ML.BAG IV SCH (00:45)
[2022-10-08 01:21] LABS: Basophils % (A) 1 %; Eosinophils # (A) 1.2 k/uL (0-0.7); Eosinophils % (A) 19 %; HCT 40.6 % (39.0-53.0); HGB 12.9 gm/dL (13.0-17.5); Lymphocytes # (A) 1.3 k/uL (1.0-4.8); Lymphocytes % (A) 20 %; MCH 28.4 pg (25.0-35.0); MCHC 31.8 g/dL (31.0-37.0); MCV 89.1 fL (80.0-100.0); Mean Platelet Volume 7.3; Monocytes # (A) 0.4 k/uL (0-1.0); Monocytes % (A) 7 %; Neutrophils # (A) 3.4 k/uL (1.3-7.7); Neutrophils % (A) 52 %; Platelet Count 229 k/uL (150-450); RBC 4.56 m/uL (4.30-5.90); RDW 13.6 % (11.5-15.5); WBC 6.5 k/uL (3.8-10.6)
[2022-10-08 01:29] LABS: Partial Thromboplastin Time 52.7 sec (22.0-30.0); Prothrombin Time 10.6 sec (9.0-12.0)
[2022-10-08 01:33] LABS: ALT 22 U/L (4-49); African American GFR (CKD) >90 (>60 ml/min/1.73 sqM); Albumin 3.7 g/dL (3.5-5.0); Anion Gap 9 mmol/L; Blood Urea Nitrogen 16 mg/dL (9-20); Calcium 8.7 mg/dL (8.4-10.2); Carbon Dioxide 21 mmol/L (22-30); Chloride 107 mmol/L (98-107); Glucose 93 mg/dL (74-99); Non-African American GFR(CKD) 89 (>60 ml/min/1.73 sqM); Sodium 137 mmol/L (137-145); Total Bilirubin 0.7 mg/dL (0.2-1.3); Total Protein 6.4 g/dL (6.3-8.2)
[2022-10-08] MEDS: NITROGLYCERIN OINT 1 INCH/GM PACKET TOPICAL SCH ×2 (01:35→06:36)
[2022-10-08 01:58] LABS: AST 36 U/L (17-59); Alkaline Phosphatase 63 U/L (38-126); Potassium 4.2 mmol/L (3.5-5.1)
[2022-10-08] MEDS ORDERED: NALOXONE 0.4 MG/ML 1 ML VIAL IV PRN (02:12)
--- NOTE | 2022-10-08 02:15 | XR ---
EXAM: XR Chest, 1 View CLINICAL HISTORY: ITS.REASON XR Reason: pain TECHNIQUE: Frontal view of the chest. AP upright portable view. COMPARISON: XR Chest dated 10/07/22 FINDINGS: Lungs: Lower lung volumes than the prior. Mild left basilar atelectasis. Pleural space: Unremarkable. No pneumothorax. Heart: Unremarkable. No cardiomegaly. Mediastinum: Unremarkable. Bones/joints: Unremarkable. IMPRESSION: Lower lung volumes than the prior. Mild left basilar atelectasis.
--- NOTE | 2022-10-08 02:42 | ED ---
General Adult HPI - General Chief complaint: Chest Pain Stated complaint: Unstable angina Time Seen by Provider: 10/08/22 00:29 Source: patient, RN notes reviewed, old records reviewed Mode of arrival: EMS Limitations: no limitations - History of Present Illness Initial comments: Patient is a 72-year-old male with past medical history remarkable for asthma, angina, CAD with cardiac stents, hypertension, hyperlipidemia, [place] with recent abnormal stress test per patient presents emergency Department as a transfer from [facility]. Patient transferred over concern for ACS, angina possibly unstable. He had chest pain that started suddenly earlier this afternoon, describes it as a sharp sensation in the middle of his chest somewhat to the left side. Denies any other radiation. Comes and goes with no known palliative or provocative factors. Denies any diaphoresis, nausea, vomiting, abdominal pain. Was found to have an indeterminate troponin at the outside facility, no acute EKG changes. Remainder the workup unremarkable. Transferred here for admission and evaluation. He was transferred here on a heparin drip as well as nitro drip. Nitro drip is a minimal 5 g. Currently asymptomatic. Already received aspirin. Presents for further evaluation at this time. States chest pain somewhat reproducible with movement of his torso/stretching of his arms. - Related Data Home Medications Medication Instructions Recorded Confirmed Budesonide/Formoterol Fumarate 2 puff INHALATION RT-BID 03/18/16 08/01/20 [Symbicort 160-4.5 Mcg Inhaler] Atorvastatin [Lipitor] 40 mg PO HS 08/01/20 08/01/20 Esomeprazole Magnesium [NexIUM] 40 mg PO DAILY 08/01/20 08/01/20 Famotidine 20 mg PO BID 08/01/20 08/01/20 Isosorbide Mononitrate ER [Imdur] 30 mg PO DAILY 08/01/20 08/01/20 Naproxen [Naprosyn] 500 mg PO BID PRN 08/01/20 08/01/20 Nitroglycerin Sl Tabs [Nitrostat] 0.4 mg SUBLINGUAL Q5M PRN 08/01/20 08/01/20 Ranolazine [Ranolazine ER] 500 mg PO BID 08/01/20 08/01/20 Tamsulosin [Flomax] 0.4 mg PO DAILY 08/01/20 08/01/20 diazePAM [Valium] 5 mg PO HS PRN 08/01/20 08/01/20 Previous Rx's Medication Instructions Recorded Acetaminophen Tab [Tylenol Tab] 1,000 mg PO Q6HR PRN #30 tablet 08/01/20 Simethicone [Gas-X] 125 mg PO AC-TID PRN #20 capsule 08/01/20 Allergies Allergy/AdvReac Type Severity Reaction Status Date / Time No Known Allergies Allergy Verified 08/01/20 10:04 Review of Systems ROS Statement: Those systems with pertinent positive or pertinent negative responses have been documented in the HPI. Review of Systems: CONST: Denies fever EYES: Denies blurry vision ENT: Denies nasal congestion C/V: Endorses chest pain RESP: Denies shortness of breath GI: Denies abdominal pain : Denies dysuria SKIN: Denies rash. MSK: Denies joint pain. NEURO: Denies headache ROS Other: All systems not noted in ROS Statement are negative. Past Medical History Past Medical History: Asthma, Coronary Artery Disease (CAD), Chest Pain / Angina, COPD, GERD/Reflux, Hyperlipidemia, Hypertension, Myocardial Infarction ([place]), Osteoarthritis (OA) Additional Past Medical History / Comment(s): recent stress test & echo, increasing neck pain with headaches Last Myocardial Infarction Date:: 2005 History of Any Multi-Drug Resistant Organisms: None Reported Past Surgical History: Heart Catheterization With Stent, Hernia Repair Additional Past Surgical History / Comment(s): BRONCHOSCOPY, PAIN CLINIC PROCEDURES Past Anesthesia/Blood Transfusion Reactions: No Reported Reaction Date of Last Stent Placement:: 2005 Past Psychological History: Anxiety Smoking Status: Former smoker Past Alcohol Use History: None Reported Past Drug Use History: None Reported - Past Family History Mother Family Medical History: No Reported History General Exam - General Exam Comments Initial Comments: HEAD: Normal with no signs of head trauma. EYES: PERRLA, EOMI, conjunctiva normal, no discharge. ENT: Hearing grossly intact, normal oropharynx. RESPIRATORY: Clear breath sounds bilaterally. No wheezes, rales, or rhonchi. C/V: Regular rate and rhythm. S1 and S2 auscultated. Peripheral pulses 2+ intact throughout. No peripheral edema. ABD: Abd is soft, nontender, nondistended EXT: Normal range of motion, no obvious deformity SKIN: No rashes or lesions observed on exposed skin. NEURO: Alert and oriented 4. Limitations: no limitations Course Vital Signs 10/08/22 10/08/22 10/08/22 00:34 00:39 00:52 Temperature 98.2 F Pulse Rate 60 66 Pulse Rate [ 68 Director Of Recruiting ] Respiratory 18 18 Rate Blood Pressure 125/81 116/83 O2 Sat by Pulse 96 96 Oximetry 10/08/22 10/08/22 10/08/22 01:11 01:26 01:36 Temperature Pulse Rate 73 64 65 Pulse Rate [ Director Of Recruiting ] Respiratory 18 18 18 Rate Blood Pressure 119/79 108/63 104/63 O2 Sat by Pulse 94 L 92 L 95 Oximetry Medical Decision Making - Medical Decision Making Was pt. sent in by a medical professional or institution (, PA, PERSONNEL OFFICER, urgent care, hospital, or assisted...) When possible be specific @ -Transferred from [facility] over concern for unstable angina. Did you speak to anyone other than the patient for history (EMS, parent, family, police, friend...)? What history was obtained from this source @ -No Did you review nursing and triage notes (agree or disagree)? Why? @ -I reviewed and agree with nursing and triage notes Were old charts reviewed (outside hosp., previous admission, EMS record, old EKG, old radiological studies, urgent care reports/EKG's, assisted records)? Report findings @ -Charts from [facility] were reviewed. Differential Diagnosis (chest pain, altered mental status, abdominal pain women, abdominal pain men, vaginal bleeding, weakness, fever, dyspnea, syncope, headach e, dizziness, GI bleed, back pain, seizure, CVA, palpatations, mental health, musculoskeletal)? @ -Differential Chest Pain: Stable Angina, Unstable Angina, STEMI, NSTEMI Aortic Dissection, Pneumothorax, Musculoskeletal, Esophageal Spasm GERD, Cholecystitis, Pancreatitis, Zoster, this is not meant to be an all-inclusive list. EKG interpreted by me (3pts min.). @ -As above X-rays interpreted by me (1pt min.). @ -Chest x-ray Reveals no obvious acute cardio pulmonary process. CT interpreted by me (1pt min.). @ -None done U/S interpreted by me (1pt. min.). @ -None done What testing was considered but not performed or refused? (CT, X-rays, U/S, labs)? Why? @ -None What meds were considered but not given or refused? Why? @ -Aspirin was considered the patient already received it. Did you discuss the management of the patient with other professionals (professionals i.e. , PA, PERSONNEL OFFICER, lab, RT, psych nurse, long term care social worker, precast concrete products installer, teacher, truant officer, correctional case manager)? Give summary @ -I spoke with Magalys Baxter who is covering for Dr. Elena who normally admits for Dr. Mcgrath who accepted the patient. Was smoking cessation discussed for >3mins.? @ -No Was critical care preformed (if so, how long)? @ -Yes, 35 minutes Were there social determinants of health that impacted care today? How? (Homel essness, low income, unemployed, alcoholism, drug addiction, transportation, low edu. Level, literacy, decrease access to med. care, skilled nursing, rehab)? @ -No Was there de-escalation of care discussed even if they declined (Discuss DNR or withdrawal of care, Hospice)? DNR status @ -No What co-morbidities impacted this encounter? (DM, HTN, Smoking, COPD, CAD, Cancer, CVA, ARF, Chemo, Hep., AIDS, mental health diagnosis, sleep apnea, morbid obesity)? @ -CAD Was patient admitted / discharged? Hospital course, mention meds given and route, prescriptions, significant lab abnormalities, going to OR and other pertinent info. @ -Based on the patient's presentation and physical exam, was transferred here for admission for cardiology evaluation due to chest pain and concern for possible angina. Workup at the outside hospital relatively unremarkable. Patient had chest pain that was relieved with nitro. Is already on a heparin drip. Is on a minimal nitro drip and this will be canceled at this time as he is symptom free and instead patient will be placed on Nitropaste with sublingual nitros as needed. He was in agreement this plan. We'll continue the heparin dr ip. We will obtain a set of basic labs including troponin. Repeat EKG was obtained and was unremarkable. No obvious ischemic process. Repeat chest x-ray also obtained and showed no obvious acute cardio pulmonary process. Vital signs within acceptable limits. Patient is resting currently at this time. Patient's labs are within acceptable limits. This includes a troponin that is undetectable. Plan does not change. Patient will be admitted to observation for cardiology evaluation. Echo ordered. Cardiology consulted. Spoke with the admitting team, JOHN Baxter who is covering for Dr. Elena who normally admits for Dr. Mcgrath. He did accept the patient. Undiagnosed new problem with uncertain prognosis? @ -No Drug Therapy requiring intensive monitoring for toxicity (Heparin, Nitro, Insulin, Cardizem)? @ -Heparin Were any procedures done? @ -No Diagnosis/symptom? @ -Chest pain, concern for unstable angina Acute, or Chronic, or Acute on Chronic? @ -Acute Uncomplicated (without systemic symptoms) or Complicated (systemic symptoms)? @ -Complicated Side effects of treatment? @ -No Exacerbation, Progression, or Severe Exacerbation? @ -No Poses a threat to life or bodily function? How? (Chest pain, [place], [place], pneumonia, PE, COPD, DKA, ARF, appy, cholecystitis, CVA, Diverticulitis, Homicidal, Suicidal, threat to staff... and all critical care pts) @ -Yes, potentially if related to ACS. - Lab Data Result diagrams: 10/08/22 00:50 10/08/22 00:50 Lab Results 10/08/22 10/08/22 10/08/22 Range/Units 00:50 00:50 00:50 WBC 6.5 (3.8-10.6) k/uL RBC 4.56 (4.30-5.90) m/uL Hgb 12.9 L (13.0-17.5) gm/dL Hct 40.6 (39.0-53.0) % MCV 89.1 (80.0-100.0) fL MCH 28.4 (25.0-35.0) pg MCHC 31.8 (31.0-37.0) g/dL RDW 13.6 (11.5-15.5) % Plt Count 229 (150-450) k/uL MPV 7.3 Neutrophils % 52 % Lymphocytes % 20 % Monocytes % 7 % Eosinophils % 19 % Basophils % 1 % Neutrophils # 3.4 (1.3-7.7) k/uL Lymphocytes # 1.3 (1.0-4.8) k/uL Monocytes # 0.4 (0-1.0) k/uL Eosinophils # 1.2 H (0-0.7) k/uL Basophils # 0.0 (0-0.2) k/uL PT 10.6 (9.0-12.0) sec INR 1.0 (<1.2) APTT 52.7 H (22.0-30.0) sec Sodium 137 (137-145) mmol/L Potassium 4.2 (3.5-5.1) mmol/L Chloride 107 (98-107) mmol/L Carbon Dioxide 21 L (22-30) mmol/L Anion Gap 9 mmol/L BUN 16 (9-20) mg/dL Creatinine 0.83 (0.66-1.25) mg/dL Est GFR (CKD-EPI)AfAm >90 (>60 ml/min/1.73 sqM) Est GFR (CKD-EPI)NonAf 89 (>60 ml/min/1.73 sqM) Glucose 93 (74-99) mg/dL Calcium 8.7 (8.4-10.2) mg/dL Magnesium 2.0 (1.6-2.3) mg/dL Total Bilirubin 0.7 (0.2-1.3) mg/dL AST 36 (17-59) U/L ALT 22 (4-49) U/L Alkaline Phosphatase 63 (38-126) U/L Troponin I (0.000-0.034) ng/mL Total Protein 6.4 (6.3-8.2) g/dL Albumin 3.7 (3.5-5.0) g/dL 10/08/22 Range/Units 00:50 WBC (3.8-10.6) k/uL RBC (4.30-5.90) m/uL Hgb (13.0-17.5) gm/dL Hct (39.0-53.0) % MCV (80.0-100.0) fL MCH (25.0-35.0) pg MCHC (31.0-37.0) g/dL RDW (11.5-15.5) % Plt Count (150-450) k/uL MPV Neutrophils % % Lymphocytes % % Monocytes % % Eosinophils % % Basophils % % Neutrophils # (1.3-7.7) k/uL Lymphocytes # (1.0-4.8) k/uL Monocytes # (0-1.0) k/uL Eosinophils # (0-0.7) k/uL Basophils # (0-0.2) k/uL PT (9.0-12.0) sec INR (<1.2) APTT (22.0-30.0) sec Sodium (137-145) mmol/L Potassium (3.5-5.1) mmol/L Chloride (98-107) mmol/L Carbon Dioxide (22-30) mmol/L Anion Gap mmol/L BUN (9-20) mg/dL Creatinine (0.66-1.25) mg/dL Est GFR (CKD-EPI)AfAm (>60 ml/min/1.73 sqM) Est GFR (CKD-EPI)NonAf (>60 ml/min/1.73 sqM) Glucose (74-99) mg/dL Calcium (8.4-10.2) mg/dL Magnesium (1.6-2.3) mg/dL Total Bilirubin (0.2-1.3) mg/dL AST (17-59) U/L ALT (4-49) U/L Alkaline Phosphatase (38-126) U/L Troponin I <0.012 (0.000-0.034) ng/mL Total Protein (6.3-8.2) g/dL Albumin (3.5-5.0) g/dL - EKG Data -: EKG Interpreted by Me EKG Comments: 12-lead Electrocardiogram Interpretation Note EKG was reviewed and interpreted by myself. 12-lead ECG performed at 0045 is interpreted by me as revealing normal sinus rhythm at a rate of 64 beats per minute. Reading is normal. TN interval is 168 ms, QRS durations 93 ms, QTc is 423 ms.. There were no ST or T wave abnormalities to suggest myocardial ischemia or injury. R wave progression across the precordium was satisfactory. By my interpretation this EKG is non-diagnostic for acute ischemia. Critical Care Time Critical Care Time: Yes Total Critical Care Time: 35 Disposition Clinical Impression: Chest pain Disposition: ADMITTED IP TO THIS [facility] Condition: Stable Referrals: Sagar Mcgrath MD [Primary Care Provider] - 1-2 days Time of Disposition: 01:52
[2022-10-08] MEDS ORDERED: NITROGLYCERIN SL TABS 0.4 MG TAB SUBLINGUAL PRN ×2 (08:19→08:21)
[2022-10-08] MEDS ORDERED: ALPRAZolam 0.5 MG TAB PO PRN (08:21)
[2022-10-08] MEDS ORDERED: ATORVASTATIN 80 MG TAB PO STA (08:21)
[2022-10-08] MEDS ORDERED: ASPIRIN 325 MG TAB PO STA (08:21)
[2022-10-08] MEDS ORDERED: ALPRAZolam 0.25 MG TAB PO PRN (08:21)
[2022-10-08] MEDS ORDERED: SODIUM CHLORIDE 0.9% 1,000 ML in EMPTY BAG 1 BAG IV SCH (08:30)
[2022-10-08] MEDS ORDERED: METOPROLOL TARTRATE 12.5 MG TAB PO SCH (09:00)
[2022-10-08] MEDS ORDERED: ASPIRIN 81 MG PO SCH (09:00)
--- NOTE | 2022-10-08 09:37 | P.CRDCN ---
History of Present Illness History of present illness: HISTORY OF PRESENT ILLNESS: This is a 72-year-old male with a past medical history significant for COPD, asthma, and reported coronary artery disease with stenting 2 although no current documentation of this. The patient denies a history of hypertension or diabetes. He does have a history of hyperlipidemia and it is documented that he had an intolerance to statins in the past but the patient does not recall this. Patient follows with a gusset stitcher in [place]. He is to follow with Dr. Carias but has not been seen in the office since 2017. We have been asked to see the patient in consultation for chest pain. Patient examined at the bedside. Patient states he has been having chest pain for the past 3-6 months. He states the chest pain will be on the left side of his chest and is a sharp pain. He states the pain lasts for approximately 1 minute and then go away. He states he recently had a stress test in [place] that was ordered secondary to his recurrent chest pain. He states he was told it was abnormal and would need heart catheterization. However this has not been scheduled. The patient states he has underwent cardiac catheterization in the past with placement of 2 stents. He states in the past he has also been on Brilinta and Plavix although he is currently not taking either of these medications. The last documented cardiac catheterization at the time of this dictation was performed in February 2016 revealing mild nonobstructive CAD. * EKG reveals sinus mechanism with no signs of acute ischemia * Chest xray lower lung volumes than the prior. Mild left basilar atelectasis. * Laboratory data: WBC 6.5. Hemoglobin 12.9. Platelet count 229. Sodium 137. Potassium 4.2. BUN 16. Creatinine 0.83. Magnesium 2.0. Troponin negative 3. * Current home cardiac medications include metoprolol succinate 25 mg daily * Most recent echocardiogram obtained in 2016 in the office revealed ejection fraction 45-50%, mild MR, mild TR * Most recent stress testing that is available at the time of this dictation was in December 2015 which was a Lexiscan stress test which was negative for ischemia REVIEW OF SYSTEMS: At the time of my exam: CONSTITUTIONAL: Denies fever or chills. HEENT: Denies blurred vision, vision changes, or eye pain. Denies hemoptysis CARDIOVASCULAR: Denies chest pain. Denies orthopnea. Denies PND. Denies palpitations RESPIRATORY: Denies shortness of breath. GASTROINTESTINAL: Denies abdominal pain. Denies nausea or vomiting. HEMATOLOGIC: Denies bleeding disorders. GENITOURINARY: Denies any blood in urine. SKIN: Denies pruitis. Denies rash. PHYSICAL EXAM: VITAL SIGNS: Reviewed. GENERAL: Well-developed in no acute distress. HEENT: Head is normocephalic. Pupils are equal, round. Sclerae anicteric. Mucous membranes of the mouth are moist. Neck supple. No JVD or thyromegaly LUNGS: Respirations even and unlabored. Lungs essentially clear to auscultation bilaterally. HEART: Regular rate and rhythm. S1 and S2 heard. ABDOMEN: Soft. Nondistended. Nontender. EXTREMITIES: Normal range of motion. No clubbing or cyanosis. Peripheral pulses intact. No lower extremity edema NEUROLOGIC: Awake and alert. Oriented x 3. ASSESSMENT: Chest pain, troponins negative 3 Abnormal outpatient stress test, per patient Coronary artery disease with stenting 2, per patient, however most recent documented cardiac catheterization available is from 2015 revealing mild nonobstructive CAD Hyperlipidemia with questionable intolerance to statins COPD Asthma PLAN: An acute coronary event has been ruled out Add aspirin 81 mg daily, atorvastatin 40 mg at night, and metoprolol tartrate 12.5 mg twice a day Discontinue nitro paste Discontinue IV heparin Patient to undergo cardiac catheterization today with Dr. Sanderson Further recommendations pending patient's course Nurse practitioner note has been reviewed by physician. Signing provider agrees with the documented findings, assessment, and plan of care. Past Medical History Past Medical History: Asthma, Coronary Artery Disease (CAD), Chest Pain / Angina, COPD, GERD/Reflux, Hyperlipidemia, Hypertension, Myocardial Infarction ([place]), Osteoarthritis (OA) Additional Past Medical History / Comment(s): recent stress test & echo, increasing neck pain with headaches Last Myocardial Infarction Date:: 2005 History of Any Multi-Drug Resistant Organisms: None Reported Past Surgical History: Heart Catheterization With Stent, Hernia Repair Additional Past Surgical History / Comment(s): BRONCHOSCOPY, PAIN CLINIC PROCEDURES Past Anesthesia/Blood Transfusion Reactions: No Reported Reaction Date of Last Stent Placement:: 2005 Past Psychological History: Anxiety Smoking Status: Former smoker Past Alcohol Use History: None Reported Additional Past Alcohol Use History / Comment(s): quit smoking 2005, smoked <ppd since age of 17 Past Drug Use History: None Reported - Past Family History Mother Family Medical History: No Reported History Medications and Allergies Home Medications Medication Instructions Recorded Confirmed Type Budesonide/Formoterol Fumarate 2 puff INHALATION RT-BID 03/18/16 10/08/22 History [Symbicort 160-4.5 Mcg Inhaler] Esomeprazole Magnesium [NexIUM] 40 mg PO DAILY 08/01/20 10/08/22 History Nitroglycerin Sl Tabs [Nitrostat] 0.4 mg SUBLINGUAL Q5M PRN 08/01/20 10/08/22 History diazePAM [Valium] 5 mg PO HS PRN 08/01/20 10/08/22 History Cetirizine HCl [Zyrtec] 10 mg PO DAILY PRN 10/08/22 10/08/22 History Fluticasone Nasal [place] [Flonase 1 spray EA NOSTRIL DAILY 10/08/22 10/08/22 History Nasal [place]] Gabapentin [Neurontin] 300 mg PO TID 10/08/22 10/08/22 History Metoprolol Succinate (ER) [Toprol 25 mg PO DAILY 10/08/22 10/08/22 History Xl] Sildenafil Citrate [Viagra] 100 mg PO DAILY PRN 10/08/22 10/08/22 History Allergies Allergy/AdvReac Type Severity Reaction Status Date / Time No Known Allergies Allergy Verified 10/08/22 07:01 Physical Exam Vitals: Vital Signs Temp Pulse Pulse Resp BP BP Pulse Ox 10/08/22 06:01 97.4 F L 62 18 103/61 94 L 10/08/22 05:04 64 18 100/70 94 L 10/08/22 01:36 65 18 104/63 95 10/08/22 01:26 64 18 108/63 92 L 10/08/22 01:11 73 18 119/79 94 L 10/08/22 00:52 66 18 116/83 96 10/08/22 00:39 68 10/08/22 00:34 98.2 F 60 18 125/81 96 Intake and Output 10/07/22 10/08/22 10/08/22 22:59 06:59 14:59 Other: # Voids 1 Weight 63.503 kg Results 10/08/22 00:50 10/08/22 00:50 Cardiac Enzymes 10/08/22 10/08/22 10/08/22 Range/Units 00:50 00:50 04:10 AST 36 (17-59) U/L Troponin I <0.012 <0.012 (0.000-0.034) ng/mL 10/08/22 Range/Units 06:38 AST (17-59) U/L Troponin I <0.012 (0.000-0.034) ng/mL Coagulation 10/08/22 10/08/22 Range/Units 00:50 06:38 PT 10.6 (9.0-12.0) sec APTT 52.7 H 51.1 H (22.0-30.0) sec CBC 10/08/22 Range/Units 00:50 WBC 6.5 (3.8-10.6) k/uL RBC 4.56 (4.30-5.90) m/uL Hgb 12.9 L (13.0-17.5) gm/dL Hct 40.6 (39.0-53.0) % Plt Count 229 (150-450) k/uL Comprehensive Metabolic Panel 10/08/22 Range/Units 00:50 Sodium 137 (137-145) mmol/L Potassium 4.2 (3.5-5.1) mmol/L Chloride 107 (98-107) mmol/L Carbon Dioxide 21 L (22-30) mmol/L BUN 16 (9-20) mg/dL Creatinine 0.83 (0.66-1.25) mg/dL Glucose 93 (74-99) mg/dL Calcium 8.7 (8.4-10.2) mg/dL AST 36 (17-59) U/L ALT 22 (4-49) U/L Alkaline Phosphatase 63 (38-126) U/L Total Protein 6.4 (6.3-8.2) g/dL Albumin 3.7 (3.5-5.0) g/dL Current Medications Generic Name Dose Route Start Last Admin Trade Name Freq PRN Reason Stop Dose Admin Heparin Sodium (Porcine) 0 unit 10/08/22 00:41 Heparin Sodium 1,000 Un/Ml (10ml Vl) IV PER PROTOCOL PRN Low PTT Protocol Heparin Sodium/Sodium Chloride 250 mls @ 7.62 mls/hr 10/08/22 00:45 10/08/22 00:55 25,000 unit/ Sodium Chloride IV 12 units/kg/hr .Q24H BEREKET 7.62 mls/hr Administration Protocol 12 UNITS/KG/HR Naloxone HCl 0.2 mg 10/08/22 02:12 Naloxone 0.4 Mg/Ml 1 Ml Vial IV Q2M PRN Opioid Reversal Nitroglycerin 0.5 inch 10/08/22 01:30 10/08/22 06:36 Nitroglycerin Oint 1 Inch/Gm Packet TOPICAL 0.5 inch Q8HR [facility] Administration Intake and Output 10/07/22 10/08/22 10/08/22 22:59 06:59 14:59 Other: # Voids 1 Weight 63.503 kg 10/08/22 00:50 10/08/22 00:50
[2022-10-08] MEDS ORDERED: VERAPAMIL 2.5 MG/ML 2 ML AMP ONE (12:32)
--- NOTE | 2022-10-08 12:46 | CA ---
Transthoracic Echo Report Name: Lior Landin Age: 72 Gender: M : 1950 Exam Date: 10/08/2022 07:58 Exam Location: [place] [facility] Ht (in): 69 Wt (lb): 140 Ordering Physician: Dixon Whipple MD Attending/Referring Phys: Supervisor Drying Lalo Lomeli RDCS Procedure CPT: Indications: Chest Pain Cardiac Hx: COPD; SOB; CP; Asthma; Pulm.emphysema Technical Quality: Fair Contrast 1: Total Dose (mL): Contrast 2: Total Dose (mL): MEASUREMENTS (Male / Female) Normal Values 2D ECHO LV Diastolic Diameter PLAX 2.7 cm 4.2 - 5.9 / 3.9 - 5.3 cm LV Systolic Diameter PLAX 2.1 cm LV Fractional Shortening PLAX 21.8 % IVS Diastolic Thickness 1.0 cm 0.6 - 1.0 / 0.6 - 0.9 cm IVS Systolic Thickness 1.1 cm LVPW Diastolic Thickness 1.1 cm 0.6 - 1.0 / 0.6 - 0.9 cm LVPW Systolic Thickness 1.3 cm LV Relative Wall Thickness 0.8 RV Internal Dim ED PLAX 3.1 cm LVOT Diameter 1.8 cm LA Systolic Diameter LX 2.6 cm 3.0 - 4.0 / 2.7 - 3.8 cm LV Diastolic Volume MOD BP 47.8 cm??? 67 - 155 / 56 - 104 cm??? LV Systolic Volume MOD BP 25.4 cm??? 22 - 58 / 19 - 49 cm??? LV Ejection Fraction MOD BP 46.9 % >= 55 % LV Stroke Volume MOD BP 22.4 cm??? LV Diastolic Volume MOD 4C 52.4 cm??? LV Systolic Volume MOD 4C 17.5 cm??? LV Ejection Fraction MOD 4C 66.6 % LV Stroke Volume MOD 4C 34.9 cm??? LV Diastolic Length 4C 7.1 cm LV Systolic Length 4C 5.6 cm LV Diastolic Volume MOD 2C 40.0 cm??? LV Systolic Volume MOD 2C 33.8 cm??? LV Ejection Fraction MOD 2C 15.4 % LV Stroke Volume MOD 2C 6.2 cm??? LV Diastolic Length 2C 6.5 cm LV Systolic Length 2C 6.2 cm M-MODE Aortic Root Diameter MM 3.3 cm LA Systolic Diameter MM 2.5 cm LA Ao Ratio MM 0.8 MV E Point Septal Separation 0.7 cm AV Cusp Separation MM 1.4 cm DOPPLER AV Peak Velocity 85.3 cm/s AV Peak Gradient 2.9 mmHg MV Deceleration Whiteside 438.7 cm/s??? Mitral E Point Velocity 79.5 cm/s Mitral A Point Velocity 89.4 cm/s Mitral E to A Ratio 0.9 MV Deceleration Time 181.1 ms TR Peak Velocity 119.8 cm/s TR Peak Gradient 5.7 mmHg Right Ventricular Systolic Press 15.7 mmHg PV Peak Velocity 80.9 cm/s PV Peak Gradient 2.6 mmHg FINDINGS Left Ventricle Left ventricular ejection fraction is estimated at 55-60 %. Borderline left ventricular hypertrophy. Grade 1 diastolic dysfunction. Normal basal systolic function. Right Ventricle Normal right ventricular size and function. Right Atrium Normal right atrial size. Left Atrium Normal left atrial size. Mitral Valve Structurally normal mitral valve. No mitral stenosis. Trace to mild mitral regurgitation. Aortic Valve Trileaflet aortic valve. No aortic valve stenosis or regurgitation. Tricuspid Valve Structurally normal tricuspid valve. Mild tricuspid regurgitation. Pulmonic Valve Structurally normal pulmonic valve. Pericardium Normal pericardium. No pericardial effusion. Aorta Normal size aortic root and proximal ascending aorta. CONCLUSIONS Left ventricular ejection fraction 55-60% Trace to mild mitral regurgitation RVSP 15 Mild tricuspid regurgitation No pericardial effusion Previewed by: Dr. Dontrell Sanderson DO (Electronically Signed) Final Date: 08 Oct 2022 12:46
[2022-10-08] MEDS ORDERED: HEPARIN SODIUM 1,000 UN/ML (10ML VL) ONE (12:49)
[2022-10-08] MEDS ORDERED: fentaNYL (PF) 50 MCG/ML 2 ML AMP ONE (12:49)
[2022-10-08] MEDS ORDERED: LIDOCAINE 1% INJ 10MG/ML (5 ML VIAL-PF) SQ ONE (12:57)
[2022-10-08] MEDS ORDERED: fentaNYL (PF) 50 MCG/ML 2 ML AMP IV ONE (12:57)
[2022-10-08] MEDS ORDERED: MIDAZOLAM 2 MG/2 ML VIAL IV ONE (12:57)
[2022-10-08] MEDS ORDERED: VERAPAMIL SYRINGE (5 MG/10 ML) INTRAARTER ONE (12:58)
[2022-10-08] MEDS ORDERED: HEPARIN SODIUM 1,000 UN/ML (10ML VL) IV ONE (13:02)
[2022-10-08] MEDS ORDERED: IV FLUID CONTINUATION 1,000 ML IV ONE (13:03)
[2022-10-08] MEDS ORDERED: IOPAMIDOL-370 200ML BTL INJ ONE (13:09)
[2022-10-08 13:31] VITALS: TEMP 97.5
[2022-10-08 16:02] LABS: Chol/HDL Ratio 3.08 Ratio; VLDL Calculation 10.58 mg/dL (5.00-40.00)
[2022-10-08 17:25] VITALS: BP 103/64; PULSE 70; RESP 18
[2022-10-08] MEDS ORDERED: ATORVASTATIN 40 MG TAB PO SCH (21:00)
--- NOTE | 2022-10-08 22:20 | P.CARDCATH ---
Description of Procedure: PROCEDURES PERFORMED: Left heart catheterization, bilateral coronary angiography INDICATION: Abnormal stress test, new-onset chest pain CONSENT:I have discussed the risks, benefits and alternative therapies for the above-mentioned procedure and for both sedation/analgesia as well as necessary blood product administration, if indicated, as they pertain to this patient. The patient has indicated understanding and acceptance of the risks and procedures discussed. PROCEDURE: After the risks, benefits and alternatives of the above mentioned procedure explained in detail with the patient, informed consent was obtained. Patient was taken to the catheterization lab and prepped and draped in usual fashion. 1% lidocaine was used to anesthetize the right radial artery. A 6- Cymraes sheath was placed in the right radial artery using modified Seldinger technique. Left coronary angiography was performed with a 5-Cymraes JL 3.5 cat heter and right coronary angiography was performed with a 5-Cymraes JR5 catheter in various views. A 5-Cymraes FR5 catheter was inserted into the left ventricle and pressure measurements were obtained. The right radial sheath was removed and a TR band was placed with hemostasis achieved. The patient tolerated the procedure well. Patient was transported back to the post catheterization holding area in stable condition. Conscious Sedation: Patient was monitored under the direct supervision of myself for conscious sedation using Versed and fentanyl for a total duration of 10 minutes HEMODYNAMICS: Aorta: 141/76 Neurology: 138/2, LVEDP 12 SELECTIVE CORONARY ARTERIOGRAPHY: LEFT MAIN: The left main is a large caliber vessel which bifurcates into the LAD and circumflex. There is no significant stenosis. LEFT ANTERIOR DESCENDING CORONARY ARTERY: LAD is a large caliber vessel which wraps around to the apex. There is a mid LAD 30-40% stenosis and otherwise mild luminal irregularities. LEFT CIRCUMFLEX CORONARY ARTERY: Left circumflex is a moderate caliber vessel a proximal circumflex 30-40% stenosis and otherwise mild luminal irregularities. RIGHT CORONARY ARTERY: The right coronary artery is a small caliber vessel which gives off a PDA and PLV branch and is the dominant vessel. There is a patent proximal and mid RCA stent with mild 10-20% stent stenosis. FINAL IMPRESSION: 1. Mild CAD as described above including 30-40% LAD, 30-40% proximal circumflex and 10-20% RCA in-stent stenosis 2. Normal left sided filling pressures PLAN: 1. Aggressive risk factor modification per most recent ACC/AHA guidelines. 2. Follow-up in the office in 1-2 weeks.
[2022-10-09] MEDS ORDERED: HEPARIN SODIUM,PORCINE 2,500 UNIT in SODIUM CHLORIDE 0.9% 250 ML IRRIGATION PRN (07:00)
[2022-10-09] MEDS ORDERED: HEPARIN SODIUM,PORCINE 10,000 UNIT in SODIUM CHLORIDE 0.9% 1,000 ML IRRIGATION PRN (07:00)
== END 2022-10-08 18:01 | disposition home or self-care (01) ==
LOC: EC 00:21 → 6NMEDSUR 02:12
PROVIDERS: ADMIT Hospitalist; ATTEND Hospitalist
DX: R07.89 Other chest pain (principal); T82.855A Stenosis of coronary artery stent, initial encounter; I25.10 Atherosclerotic heart disease of native coronary artery without angina pectoris; I10 Essential (primary) hypertension; E78.5 Hyperlipidemia, unspecified; I25.2 Old myocardial infarction; J44.9 Chronic obstructive pulmonary disease, unspecified; F41.9 Anxiety disorder, unspecified; K21.9 Gastro-esophageal reflux disease without esophagitis; J98.11 Atelectasis; I08.1 Rheumatic disorders of both mitral and tricuspid valves; Z95.5 Presence of coronary angioplasty implant and graft; Z79.51 Long term (current) use of inhaled steroids; Z79.899 Other long term (current) drug therapy; Z87.891 Personal history of nicotine dependence; Y84.0 Cardiac catheterization as the cause of abnormal reaction of the patient, or of later complication, without mention of misadventure at the time of the procedure
CPT/HCPCS: 99291; 36415; 93005; 93306; 93458; 80061; 80053; 83735; 84484; 85025; 85610; 85730; 71045; G0378; C1769; C1894; J2250; J2001; J3010; J1644 ×2; Q9967

== ENCOUNTER → 2024-09-26 | Outpatient (CLI) | payer MEDICARE ==
[2024-09-26 12:44] LABS: African American GFR (CKD) 85 (>60 ml/min/1.73 sqM); Blood Urea Nitrogen 10 mg/dL (9-20); Non-African American GFR(CKD) 74 (>60 ml/min/1.73 sqM)
--- NOTE | 2024-09-26 14:50 | CT ---
EXAMINATION TYPE: CT abdomen pelvis w con DATE OF EXAM: 09/26/2024 COMPARISON: 01/02/2017 CLINICAL INDICATION: Male, 74 years old with history of R10.84 GENERALIZED ABDOMINAL PAIN; PHH, GENER ALZED ABD PAIN TECHNIQUE: Performed with Oral Contrast and with IV Contrast, patient injected with 100 mL of Isovue 300. CT DLP: 448.[address] CTDI: mGy Automated exposure control for dose reduction was used. The lung bases are clear. There is surgical absence of the gallbladder. There is no biliary ductal dilatation. There is no focal mass or organomegaly involving the liver, pancreas, spleen or adrenal glands. There is no solid renal mass or hydronephrosis and there is homogeneous contrast enhancement of the r enal parenchyma. The caliber the abdominal aorta is normal is no retroperitoneal adenopathy or hemorrhage. The bowel loops are normal in caliber and there is no evidence of dilatation or obstruction. No infla mmatory changes are identified in the bowel wall or mesentery. There is no free intraperitoneal air or fluid. No pelvic mass, free fluid, abscess or adenopathy. There is marked prostatic hypertrophy. The osseous structures and soft tissues are intact. IMPRESSION: 1. No acute changes within the abdomen or pelvis. 2. Marked prostatic hypertrophy. [facility], , 09/26/2024 2:48 PM
== END | disposition home or self-care (01) ==
LOC: RADCTMAIN 11:58
PROVIDERS: ATTEND Internal Medicine
DX: N40.0 Benign prostatic hyperplasia without lower urinary tract symptoms (principal)
CPT/HCPCS: 82565; 84520; 74177; 36415; Q9967